=== PATIENT | male | born 1950 | race Caucasian/White ===

== ENCOUNTER → 2017-08-07 12:57 | Outpatient (POV) | payer MEDICARE, SELFPAY | PROVIDERS: Visit Provider Dermatology | DX: Z00.00 Encounter for general adult medical examination without abnormal findings (principal) ==

== ENCOUNTER → 2019-01-26 15:04 | Outpatient (POV) | payer MEDICARE, SELFPAY | PROVIDERS: Visit Provider Dermatology | DX: Z00.00 Encounter for general adult medical examination without abnormal findings (principal) ==

== ENCOUNTER → 2020-07-18 13:25 | Outpatient (CLI) | payer MEDICARE, SELFPAY ==
--- NOTE | 2020-07-18 13:34 | XR_ITS ---
PROCEDURE: XR WRIST LT MIN 3V CLINICAL INDICATION: left wrist pain Pain and swelling COMPARISON: No exams were available for comparison FINDINGS: No fracture or dislocation. No lytic or blastic change. There is normal mineralization. The joint spaces are well-preserved. No significant degenerative/arthritic changes. No erosive changes evident. Other findings:Small subcortical cyst is present at the region of the styloid process of the radius at 5 mm. IMPRESSION: Subcortical cyst of the radial styloid process otherwise negative Dictated by: Ede Kwan MD 07/18/2020 14:37 Ede Kwan MD in [place] 07/18/2020 14:37
== END ==
PROVIDERS: PCP Internal Medicine Adolescent Medicine; Visit Provider Orthopaedic Surgery
DX: M25.532 Pain in left wrist (principal)
CPT/HCPCS: 73110

== ENCOUNTER 2020-07-18 14:34 | Outpatient (RCR) | payer MEDICARE, SELFPAY | END 2020-07-18 15:00 | disposition home or self-care (01) | LOC: OT 14:34 | PROVIDERS: Visit Provider Orthopaedic Surgery | DX: M65.4 Radial styloid tenosynovitis [de Quervain] (principal); M25.532 Pain in left wrist; G89.29 Other chronic pain | CPT/HCPCS: 97763 ==

== ENCOUNTER → 2020-08-15 09:03 | Outpatient (POV) | payer MEDICARE, SELFPAY | PROVIDERS: Visit Provider Dermatology | DX: Z00.00 Encounter for general adult medical examination without abnormal findings (principal) ==

== ENCOUNTER → 2020-09-19 09:30 | Outpatient (POV) | payer MEDICARE, SELFPAY | PROVIDERS: Visit Provider Dermatology | DX: Z00.00 Encounter for general adult medical examination without abnormal findings (principal) ==

== ENCOUNTER → 2020-09-29 08:41 | Outpatient (CLI) | payer MEDICARE, SELFPAY ==
[2020-09-29 09:00] LABS: Basophils # 0.1 K/mm3 (0-0.2); Basophils % 0.8 % (0.1-2.0); Eosinophils # 0.1 K/mm3 (0.0-0.4); Eosinophils % 0.4 % (0.1-12.0); Hematocrit 41.6 % (42.0-52.0); Hemoglobin 13.4 g/dL (14.1-18.0); Lymphocytes # 3.8 K/mm3 (0.7-4.5); Lymphocytes % 31.7 % (10-50); Mean Corpuscular HGB Conc 32.2 g/dL (31.8-35.4); Mean Corpuscular Hemoglobin 29.9 pg (27.0-31.2); Mean Corpuscular Volume 92.6 fl (80-94); Mean Platelet Volume 8.1 fl (7.4-10.4); Monocytes # 0.7 K/mm3 (0.1-1.0); Monocytes % 5.7 % (1.7-9.3); Neutrophils # 7.4 K/mm3 (1.8-7.8); Neutrophils % 61.4 % (37.0-80.0); Platelet Count 269 K/mm3 (142-424); Red Blood Count 4.49 M/mm3 (4.60-6.20); Red Cell Distribution Width 14.4 % (11.5-17.5)
[2020-09-29 09:11] LABS: Hemoglobin A1C 6.5 % (4.0-6.0)
[2020-09-29 09:57] LABS: Alanine Aminotransferase 23 U/L (12-78); Albumin Level 4.4 g/dl (3.5-5.0); Albumin/Globulin Ratio 1.8 (1.1-1.8); Alkaline Phosphatase 88 U/L (38-126); Anion Gap 11.2 mEq/L (5-15); Aspartate Amino Transferase 22 U/L (17-59); Bilirubin,Total 0.6 mg/dl (0.2-1.3); Blood Urea Nitrogen 23 mg/dl (9-20); Carbon Dioxide 26 mmol/L (22.0-30.0); Chloride 105 mmol/L (98-107); Chol/HDL Ratio 4.3 (1-3.5); Cholesterol 150 mg/dl (140-200); Estimated Glomerular Filt Rate 74 ml/min (>60); GFR (African American) 89 ML/MIN (>60); Globulin 2.5 g/dL (1.3-3.2); Glucose 113 mg/dl (74-100); HDL Cholesterol 35 mg/dl (40-60); Potassium 4.2 mmoL/L (3.5-5.1); Sodium 138 mmol/L (136-145); Total Protein,Serum 6.9 g/dl (6.3-8.2); Triglycerides 181 mg/dl (30-150); VLDL Cholesterol 36 mg/dL (0-40)
[2020-09-29 10:07] LABS: Direct LDL Cholesterol 83.38 mg/dL (100-129)
[2020-09-29 10:26] LABS: Prostate Specific Ag Screen 3.5 ng/ml (0.0-4.0)
== END ==
PROVIDERS: Visit Provider Internal Medicine Adolescent Medicine
DX: I25.10 Atherosclerotic heart disease of native coronary artery without angina pectoris (principal); E78.5 Hyperlipidemia, unspecified; E11.9 Type 2 diabetes mellitus without complications; Z79.84 Long term (current) use of oral hypoglycemic drugs; Z12.5 Encounter for screening for malignant neoplasm of prostate
CPT/HCPCS: 36415; 80053; 80061; 83036; 85025; G0103

== ENCOUNTER → 2021-05-02 08:22 | Outpatient (CLI) | payer MEDICARE, SELFPAY ==
[2021-05-02 09:21] LABS: Basophils # 0.1 K/mm3 (0-0.2); Basophils % 1.4 % (0.1-2.0); Eosinophils # 0.6 K/mm3 (0.0-0.4); Eosinophils % 7.4 % (0.1-12.0); Hemoglobin 13.5 g/dL (14.1-18.0); Lymphocytes # 2.5 K/mm3 (0.7-4.5); Lymphocytes % 29.5 % (10-50); Mean Corpuscular HGB Conc 32.9 g/dL (31.8-35.4); Mean Corpuscular Hemoglobin 30.2 pg (27.0-31.2); Mean Corpuscular Volume 91.7 fl (80-94); Mean Platelet Volume 8.9 fl (7.4-10.4); Monocytes # 0.4 K/mm3 (0.1-1.0); Monocytes % 4.9 % (1.7-9.3); Neutrophils # 4.7 K/mm3 (1.8-7.8); Neutrophils % 56.9 % (37.0-80.0); Platelet Count 268 K/mm3 (142-424); Red Blood Count 4.47 M/mm3 (4.60-6.20); Red Cell Distribution Width 14.3 % (11.5-17.5); White Blood Count 8.3 K/mm3 (4.8-10.8)
[2021-05-02 10:11] LABS: Alanine Aminotransferase 16 U/L (12-78); Albumin Level 4.3 g/dl (3.5-5.0); Albumin/Globulin Ratio 1.7 (1.1-1.8); Alkaline Phosphatase 92 U/L (38-126); Anion Gap 10.4 mEq/L (5-15); Aspartate Amino Transferase 26 U/L (17-59); Bilirubin,Total 0.7 mg/dl (0.2-1.3); Blood Urea Nitrogen 16 mg/dl (9-20); Calcium 9.5 mg/dl (8.4-10.2); Carbon Dioxide 34 mmol/L (22.0-30.0); Chloride 101 mmol/L (98-107); Cholesterol 120 mg/dl (140-200); Estimated Glomerular Filt Rate 66 ml/min (>60); GFR (African American) 80 ML/MIN (>60); Globulin 2.6 g/dL (1.3-3.2); Glucose 119 mg/dl (74-100); HDL Cholesterol 30 mg/dl (40-60); Potassium 4.4 mmoL/L (3.5-5.1); Sodium 141 mmol/L (136-145); Total Protein,Serum 6.9 g/dl (6.3-8.2); Triglycerides 139 mg/dl (30-150); VLDL Cholesterol 28 mg/dL (0-40)
[2021-05-02 10:22] LABS: Direct LDL Cholesterol 67.57 mg/dL (100-129)
[2021-05-02 10:41] LABS: Prostate Specific Ag Screen 2.7 ng/ml (0.0-4.0)
[2021-05-02 10:46] LABS: Hemoglobin A1C 6.1 % (4.0-6.0)
== END ==
PROVIDERS: Visit Provider Internal Medicine Adolescent Medicine
DX: E11.9 Type 2 diabetes mellitus without complications (principal); E78.5 Hyperlipidemia, unspecified; I25.10 Atherosclerotic heart disease of native coronary artery without angina pectoris; Z79.84 Long term (current) use of oral hypoglycemic drugs; Z12.5 Encounter for screening for malignant neoplasm of prostate
CPT/HCPCS: 36415; 80053; 80061; 83036; 85025; G0103

== ENCOUNTER → 2021-05-10 10:18 | Outpatient (CLI) | payer MEDICARE, SELFPAY ==
--- NOTE | 2021-05-10 10:21 | XR_ITS ---
PROCEDURE: XR SHOULDER LT MIN 2V CLINICAL INDICATION: ACUTE PAIN OF LT SHOULDER COMPARISON: No exams were available for comparison FINDINGS: No fracture or dislocation. No lytic or blastic change. There is normal mineralization. Osteoarthritic changes are present at the acromioclavicular joint and glenohumeral joint. No significant subacromial stenosis. Other findings:None. 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
== END ==
PROVIDERS: PCP Internal Medicine Adolescent Medicine; Visit Provider Internal Medicine Adolescent Medicine
DX: M25.512 Pain in left shoulder (principal)
CPT/HCPCS: 73030

== ENCOUNTER 2021-06-26 13:56 | Outpatient (RCR) | payer MEDICARE, SELFPAY ==
--- NOTE | 2021-06-26 14:57 | HMH.OTOPEV ---
OT Inpatient Evaluation Rehab OT Outpatient Eval Start: 06/26/21 14:37 Freq: Status: Active Protocol: Document 06/26/21 14:38 RMGREG (Rec: 06/26/21 14:57 [facility] [id number]) Electronically Signed By Florence Juares OT 06/26/21 14:38 Outpatient Therapy Subjective History Subjective History Pt is a 70 year old male who reports to therapy for initial evaluation to left shoulder. Pt reports he has been having pain at the left shoulder since this past summer (2020). Pt explains he does not require a specific injury causing the pain to begin. X- rays did find mild OA of the AC joint and Glenohumeral joint of left shoulder. Pt received a steroid injection from Dr. Lema ~2 weeks ago. Since the injection pt reports he has significantly less pain and improved AROM. Pt does demonstrate with slight decrease in AROM and strength at left shoulder upon evaluation. Pt will continue to be seen twice a week in order to address all deficits. Chief Complaint Pain,Stiff,Weakness Symptom Type Ache,Throb,Sharp,Dull Symptoms Relieved By Rest/Positioning Symptoms Aggravated By Physical Activity,Lifting Prior Functional Limitations None Current Functional Limitations Reaching,Lifting,Housework, Sleeping,Recreation Activity Symptom Description Intermittent,Activity Dependent Level of pain today (0-10) 0 Pain scale - at its best (0-10) 0 Pain scale - at its worst (0-10) 8 Shoulder/Elbow Eval Shoulder Objective Measurements Shoulder ROM Left Shoulder Abduction Active Range of 150 degrees Motion (degrees) Shoulder Flexion Active Range of Motion 145 degrees (degrees) Query Text: Shoulder External Rotation Active Range 75 degrees of Motion (degrees) Shoulder Internal Rotation Active Range 80 degrees of Motion (degrees) Shoulder MMT Shoulder Abduction Strength Grade 3 Fair Shoulder Extension Strength Grade 3 Fair Shoulder Flexion Strength Grade 3 Fair Shoulder External Rotation Strength 3 Fair Grade Shoulder Internal
== END 2021-06-26 13:59 | disposition home or self-care (01) ==
LOC: OT 13:56
PROVIDERS: PCP Internal Medicine Adolescent Medicine; Visit Provider Orthopaedic Surgery
DX: M19.012 Primary osteoarthritis, left shoulder (principal); M65.4 Radial styloid tenosynovitis [de Quervain]; M25.532 Pain in left wrist
CPT/HCPCS: 97010; 97014; 97110; 97166; G0283

== ENCOUNTER → 2021-07-17 08:43 | Outpatient (POV) | payer MEDICARE, SELFPAY | PROVIDERS: Visit Provider Dermatology | DX: Z00.00 Encounter for general adult medical examination without abnormal findings (principal) ==

== ENCOUNTER → 2021-07-31 09:15 | Outpatient (POV) | payer MEDICARE, SELFPAY | PROVIDERS: Visit Provider Dermatology | DX: Z00.00 Encounter for general adult medical examination without abnormal findings (principal) ==

== ENCOUNTER → 2021-08-01 11:44 | Outpatient (CLI) | payer MEDICARE, SELFPAY ==
[2021-08-01 12:02] LABS: Basophils # 0.2 K/mm3 (0-0.2); Basophils % 2.2 % (0.1-2.0); Eosinophils # 0.5 K/mm3 (0.0-0.4); Eosinophils % 5.3 % (0.1-12.0); Hematocrit 41.7 % (42.0-52.0); Hemoglobin 13.7 g/dL (14.1-18.0); Lymphocytes # 2.9 K/mm3 (0.7-4.5); Mean Corpuscular HGB Conc 32.9 g/dL (31.8-35.4); Mean Corpuscular Volume 91.1 fl (80-94); Monocytes # 0.5 K/mm3 (0.1-1.0); Monocytes % 5.5 % (1.7-9.3); Neutrophils # 5.6 K/mm3 (1.8-7.8); Neutrophils % 56.9 % (37.0-80.0); Platelet Count 266 K/mm3 (142-424); Red Blood Count 4.57 M/mm3 (4.60-6.20); Red Cell Distribution Width 15.1 % (11.5-17.5); White Blood Count 9.8 K/mm3 (4.8-10.8)
--- NOTE | 2021-08-01 12:16 | ECG_ITS ---
APPROVED REPORT Exam: Resting ECG HR:49 bpm ECG Measurements Heart Rate 49 AXES NJ 168 P 47 QRSd 96 QRS 24 QT 440 T 48 QTc 409 Conclusion SINUS BRADYCARDIA WITH FREQUENT VENTRICULAR PREMATURE COMPLEXES ABNORMAL RHYTHM ECG UNCONFIRMED REPORT Electronically signed by : Oren Perez MD 08/01/2021 21:54:28
[2021-08-01 12:28] LABS: Hemoglobin A1C 6.3 % (4.0-6.0)
[2021-08-01 12:57] LABS: Chloride 100 mmol/L (98-107)
[2021-08-01 12:58] LABS: Potassium 4.8 mmoL/L (3.5-5.1); Sodium 135 mmol/L (136-145)
[2021-08-01 13:00] LABS: Blood Urea Nitrogen 18 mg/dl (9-20); Estimated Glomerular Filt Rate 66 ml/min (>60); GFR (African American) 80 ML/MIN (>60)
[2021-08-01 13:01] LABS: Anion Gap 12.8 mEq/L (5-15); Calcium 9.4 mg/dl (8.4-10.2); Carbon Dioxide 27 mmol/L (22.0-30.0); Glucose 113 mg/dl (74-100)
== END ==
PROVIDERS: PCP Internal Medicine Adolescent Medicine; Visit Provider Orthopaedic Surgery
DX: E11.9 Type 2 diabetes mellitus without complications (principal); Z01.818 Encounter for other preprocedural examination; Z11.52 Encounter for screening for COVID-19; G56.02 Carpal tunnel syndrome, left upper limb; Z79.84 Long term (current) use of oral hypoglycemic drugs
CPT/HCPCS: 36415; 80048; 83036; 85025; 93005; C9803; U0003; U0005

== ENCOUNTER → 2021-08-06 15:32 | Outpatient (CLI) | payer MEDICARE, SELFPAY ==
--- NOTE | 2021-08-06 15:37 | MR_ITS ---
PROCEDURE INFORMATION: Exam: MR Right Upper Extremity Other Than Joint Without Contrast; Hand Exam date and time: 08/06/2021 3:37 PM Age: 70 years old Clinical indication: Pain; Additional info: Evaluate for RT middle ganglion cyst TECHNIQUE: Imaging protocol: MR of the Right upper extremity without contrast. Exam focused on the hand. COMPARISON: No relevant prior studies available. FINDINGS: Limitations: Lack of intravenous contrast. Bones/joints: No acute fracture. No dislocation. Normal marrow signal. Fluid: No significant joint effusion. Flexor compartment tendons: Intact. Extensor compartment tendons: Intact. Muscles: Unremarkable. Soft tissues: 1.2 x 0.6 x 0.4 cm low to intermediate T1, high T2 signal lesion along flexor tendon of third digit. IMPRESSION: Nonspecific lesion along flexor tendon of third digit. Recommend contrast MRI for complete evaluation.
--- NOTE | 2021-08-06 15:47 | XR_ITS ---
FINAL REPORT CLINICAL HISTORY: R/O METAL FOREIGN BODY FOR MRI. prior hx metal in both eyes. patient waiting for mri on site FINDINGS: ORBITS 2 views of the orbits were obtained prior to MRI. No foreign body is identified. IMPRESSION: No foreign body identified. Reviewed, Interpreted and Dictated by Dean Buck III, MD Transcribed by Soni Finney Authenticated by Dean Buck III, MD on 08/06/2021 04:38:39 PM [facility]
== END ==
PROVIDERS: PCP Internal Medicine Adolescent Medicine; Visit Provider Orthopaedic Surgery
DX: M79.644 Pain in right finger(s) (principal); H05.53 Retained (old) foreign body following penetrating wound of bilateral orbits
CPT/HCPCS: 70200; 73218

== ENCOUNTER → 2021-08-07 09:18 | Outpatient (CLI) | payer MEDICARE, SELFPAY | PROVIDERS: Visit Provider Orthopaedic Surgery | DX: Z01.812 Encounter for preprocedural laboratory examination (principal); Z11.52 Encounter for screening for COVID-19; G56.01 Carpal tunnel syndrome, right upper limb | CPT/HCPCS: C9803; U0003; U0005 ==

== ENCOUNTER 2021-08-09 10:00 | Day surgery (SDC) | payer MEDICARE, SELFPAY ==
[2021-08-06 13:41] VITALS: BMI 31.4
[2021-08-09 10:28] VITALS: BP 132/73; PULSE 51; RESP 18; TEMP 36.1; O2SAT 98
--- NOTE | 2021-08-09 12:47 | P.PN_ITS ---
[facility] Anesthesia Checklist - Patient Identification Patient Identification: Arm Band, Verbal (Name & ) - Structural Data Admitted From: Home Planned Operative Procedure/s: Left Carpal Tunnel Repair Consent for Planned Operative Procedure(s) Verified: Yes Verified Documents: Surgical Consent - NPO Status Verified Time NPO: 00:00 - Additional verifications Anesthesia Reactions: No Hx Blood Transfusions: No Blood Transfusion Reaction: No - Airway Assessment C-Spine Mobility Assessed: Yes TMJ Mobility Assessed: Yes Dentition: Good Dentition - Neurological Assessment Level of Consciousness: Awake, Alert, Appropriate - Anesthesia Plan ASA Class: III Anesthesia Type: MAC [facility] History I have reviewed the patient's past medical history: Yes Medical History: Reports:: Diabetes Mellitus Type 2, Hyperlipidemia, Hypertensio n Denies:: Cancer, Diabetes Mellitus Type 1, Internal Pacemaker, MRSA, Seizures *Have you ever received a pneumonia vaccine?: Yes *Have you received a flu vaccine this season?: Yes Other Medical History: Reports: Arthritis. Denies: Blood Transfusion Reaction Anesthesia experience/problems:: none Other Surgeries: Yes: Cancer Surgery, Cardiac Catheterization, Colonoscopy, Open Heart Surgery. No: Pacemaker Amputation: No Fractures: No - *Social History Last grade of school completed: GED Smoking Status: Never smoker Tobacco Type: cigarettes # Packs/Day (cigarettes): 0 #Yrs smoked (if former smoker): 0 Alcohol Intake: current Alcohol Intake Frequency:: a few times a month Substance Use Type: denies use *Occupational Status:: retired Housing: house Household Members: spouse *Travel in the last 8 weeks: None Family Hx:: Cancer, Diabetes
[2021-08-09 14:09] VITALS: BP 155/74; PULSE 69; RESP 18; TEMP 36.7; O2SAT 96
[2021-08-09 14:24] VITALS: BP 152/79; PULSE 70; RESP 18; O2SAT 94
[2021-08-09 14:39] VITALS: BP 154/81; PULSE 53; RESP 18; O2SAT 95
--- NOTE | 2021-08-09 22:08 | HMH.OPNOTE ---
Date of procedure: 08/09/21 Pre-op Diagnosis:: Recurrent carpal tunnel syndrome, left wrist Post-op Diagnosis:: Same Procedure performed:: Revision open carpal tunnel release, left wrist Surgeon:: Sidney Lema MD [employer] Supervisor(s):: Rachael Tao PA-C CHILD PSYCHOMETRIST:: Other (Joe Villeda) Anesthesia: MAC, local Estimated blood loss (mL): 2 Clinical Note:: Patient is a 70-year-old male with recurrent left carpal tunnel syndrome with long-standing symptoms. EMG/NCV results confirmed moderate median nerve compression at the wrist. He previously had an open carpal tunnel release surgery about 10 years ago. His symptoms on the left side are gradually worsening, and patient failed to respond adequately to conservative management. Therefore, the revision carpal tunnel release surgery on the left side is necessary to relieve symptoms, preserve the remaining fibers of the median nerve, improve function, and decrease the pain, paresthesias and weakness and to prevent permanent nerve damage. Please refer to my office note for full details. Operative findings:: The intraoperative findings showed a lot of scarring from the previous surgery. The median nerve was seen to be very tightly compressed and hyperemic over the distal carpal tunnel. Adhesions and synovitis noted in the carpal tunnel. The flexor retinaculum was noted to be thick and tight distally. There were no space-occupying lesions within the carpal tunnel. Operative note:: On the day of the surgery the patient was met in the preoperative area. Patient was positively identified, and the operative site was marked and initialed by me. A physical examination was performed, and the chart was updated. I again discussed the procedure, risks and benefits and alternatives with the patient. The complications discussed include but are not limited to- bleeding, injury to nerves, blood vessels and tendons, infection, wound dehiscence, incomplete relief/continued pain, persistent numbness, palmar hypersensitivity, pillar pain, DVT/PE, complex regional pain syndrome (CRPS), worsening of nerve damage, failure of the condition to improve, incomplete return of function, bowstringing of tendons, weakness of pool cleaner strength, recurrence, failure of the surgery to accomplish the desired goals, decreased use of the hand, loss of use of the arm, loss of the hand or arm, loss of life. Likely need for further surgery in the future has been discussed. I have told her that I will be making a separate and longer incision crossing the wrist crease at an angle and have indicated to the patient where the proposed incision would be made and discussed the possibility of extending the incision if needed to accomplish an effective release. We have discussed how the goal of surgery is to protect the fibers which have remained healthy and hopefully reverse the symptoms of the fibers which are compromised but still recoverable. We have explained that fibers that are permanently damaged will not recover. Patient asked appropriate questions, and all have been answered by me. Patient understood the risks, agreed to proceed with surgery, and no guarantees or assurances were given or implied. The patient was then brought to the operating room and placed supine on the operating table. The left upper extremity was placed over a side table. All the bony prominences were well-padded. The patient had a MAC anesthesia administered by the building analyst/supervisor. A well-padded tourniquet cuff was placed over the upper arm. The left upper extremity was prepped and draped in the usual sterile fashion. A preprocedure timeout was performed as per hospital policy. The Strong's landmarks and previous skin incision was marked on the skin with a marker pen. I then marked the proposed new incision more ulnar to the previous scar and extending into the forearm crossing the distal wrist crease at an angle. The tissue around the proposed incision was injected with 10 cc of 0.5% M
[2022-03-07 10:57] LABS: POC Glucose,Bedside 129 (70-110)
== END 2021-08-09 14:39 | disposition home or self-care (01) ==
LOC: OR 10:01
PROVIDERS: PCP Internal Medicine Adolescent Medicine; Visit Provider Orthopaedic Surgery
PROC: (CPT 64721; principal; 2021-08-09 11:30)
DX: G56.02 Carpal tunnel syndrome, left upper limb (principal)
CPT/HCPCS: 64721; 82962; 96374

== ENCOUNTER 2021-11-25 10:35 | Emergency (ER) | payer MEDICARE, SELFPAY ==
[2021-11-25] VITALS (13 sets, daily range): BP systolic 169–218; BP diastolic 75–113; PULSE 65–84; RESP 18; TEMP 36.5; O2SAT 92–98; BMI 30.7
--- NOTE | 2021-11-25 11:07 | CT_ITS ---
PROCEDURE INFORMATION: Exam: CT Abdomen And Pelvis Without Contrast Exam date and time: 11/25/2021 11:22 AM Age: 71 years old Clinical indication: Abdominal pain; Other: Pain in rectum, unable to use bathroom; Additional info: Lower abdomen pain TECHNIQUE: Imaging protocol: Computed tomography of the abdomen and pelvis without contrast. Radiation optimization: All CT scans at this facility use at least one of these dose optimization techniques: automated exposure control; mA and/or kV adjustment per patient size (includes targeted exams where dose is matched to clinical indication); or iterative reconstruction. COMPARISON: No relevant prior studies available. FINDINGS: Liver: Normal. No mass. Gallbladder and bile ducts: Cholecystectomy. Pancreas: Normal. No ductal dilation. Spleen: Normal. No splenomegaly. Adrenal glands: Normal. No mass. Kidneys and ureters: Left renal cysts. Small nonobstructing left renal calculi. Stomach and bowel: No bowel obstruction. Moderate to large colonic stool burden. There is mild mural thickening of the rectum with mild surrounding fat stranding. A few locules of gas which appear to be extraluminal are also seen along the lower rectum. These may be within the intersphincteric space. The most inferior aspect of the anal canal is not imaged. Appendix: No evidence of appendicitis. Intraperitoneal space: See Stomach and bowel finding. Vasculature: Mild burden of atherosclerotic plaque in the abdominal aorta and branch vessels. No aneurysm. Lymph nodes: Unremarkable. No enlarged lymph nodes. Urinary bladder: Unremarkable as visualized. Reproductive: Prostatomegaly. Bones/joints: Unremarkable. No acute fracture. Soft tissues: Unremarkable. Other findings: Mild stranding in the mesorectum is seen. IMPRESSION: The wall of the rectum appears mildly thickened with some surrounding fat stranding. A few locules of extraluminal gas are also seen along the lower rectal/anal canal. These appear to be within the intersphincteric space. The most inferior aspect of the anal canal is not imaged. Findings could reflect a small contained perforation in the setting of proctitis. COMMENTS: Consistent with the [employer]'s Incidental Findings Committee white paper (J Am Sophia Radiol 2018): Any incidental renal lesion less than 1 cm or classified as too small to characterize, or any incidental cystic renal lesion characterized as simple-appearing, is likely benign. No follow-up imaging is recommended for these lesions per consensus recommendations based on imaging criteria.
[2021-11-25 11:08] LABS: Basophils # 0.3 K/mm3 (0-0.2); Basophils % 1.4 % (0.1-2.0); Eosinophils # 0.6 K/mm3 (0.0-0.4); Hematocrit 45.9 % (42.0-52.0); Hemoglobin 15.4 g/dL (14.1-18.0); Lymphocytes # 3.5 K/mm3 (0.7-4.5); Lymphocytes % 18.1 % (10-50); Mean Corpuscular HGB Conc 33.6 g/dL (31.8-35.4); Mean Corpuscular Volume 92.1 fl (80-94); Mean Platelet Volume 8.5 fl (7.4-10.4); Monocytes # 0.6 K/mm3 (0.1-1.0); Monocytes % 3.2 % (1.7-9.3); Neutrophils # 14.2 K/mm3 (1.8-7.8); Neutrophils % 74.3 % (37.0-80.0); Platelet Count 362 K/mm3 (142-424); Red Blood Count 4.98 M/mm3 (4.60-6.20); Red Cell Distribution Width 14.3 % (11.5-17.5); White Blood Count 19.1 K/mm3 (4.8-10.8)
[2021-11-25 11:10] LABS: Chloride 104 mmol/L (98-107)
--- NOTE | 2021-11-25 11:10 | PC.NURSE ---
pt states his is unable to urinate at this time. Pt given urinal when he is able too
[2021-11-25 11:11] LABS: Potassium 4.3 mmoL/L (3.5-5.1); Sodium 141 mmol/L (136-145)
[2021-11-25 11:13] LABS: Alanine Aminotransferase 26 U/L (12-78); Alkaline Phosphatase 129 U/L (38-126); Aspartate Amino Transferase 32 U/L (17-59); Blood Urea Nitrogen 20 mg/dl (9-20); Creatinine Clearance Estimated 78 mL/min (50-200); Estimated Glomerular Filt Rate 73 ml/min (>60); GFR (African American) 89 ML/MIN (>60)
[2021-11-25 11:14] LABS: Albumin Level 5.1 g/dl (3.5-5.0); Albumin/Globulin Ratio 1.5 (1.1-1.8); Anion Gap 20.3 mEq/L (5-15); Calcium 10.1 mg/dl (8.4-10.2); Carbon Dioxide 21 mmol/L (22.0-30.0); Globulin 3.3 g/dL (1.3-3.2); Glucose 204 mg/dl (74-100); Total Protein,Serum 8.4 g/dl (6.3-8.2)
[2021-11-25 11:18] LABS: MANUAL DIFFERENTIAL MANUAL DIFFERENTIAL (MANUAL DIFF)
--- NOTE | 2021-11-25 11:25 | PC.NURSE ---
pt given blanket for comfort
--- NOTE | 2021-11-25 11:26 | PC.NURSE ---
pt to radiology
--- NOTE | 2021-11-25 11:29 | PC.NURSE ---
pt back from radiology
--- NOTE | 2021-11-25 11:35 | PC.NURSE ---
pt reminded that we need a urine sample, urinal at pt side
[2021-11-25 11:50] LABS: Eosinophils % 3 % (0-3); Lymphocytes % 17 % (10-50); Monocytes % 1 % (2-9); Neutrophils % 78 % (42-76); Platelet Estimate Normal; RBC Morphology Normal; Total Cells Counted 100
--- NOTE | 2021-11-25 12:14 | HMH.EDGENADL ---
ED Disposition Clinical Impression: Rectal perforation, Proctitis Constipation Qualifiers: Constipation type: unspecified constipation type Qualified Code(s): K59.00 - Constipation, unspecified Disposition: Xfer Short-Term Hosp Condition on Discharge: Serious Instructions: DI for Acute Abdominal Pain Referrals: Oren Perez MD [Primary Care Provider] - - Critical Care Critical Care Time: No Attestation: On 11/25/21, the high probability of a clinically significant, sudden or life threatening deterioration of the following system(s) required my full and direct attention, intervention and personal management. The time I documented below is in addition to time spent performing reported procedures but includes the following listed in this critical care notation. Medical Decision Making - Preston Inquiry Pt receiving controlled substance: Yes Preston was queried for this patient: Yes Risks and benefits of using a controlled substance: were not discussed with pt by me Vital Signs: 11/25/21 10:36 11/25/21 10:40 11/25/21 10:45 Temperature 97.7 F Temperature Source Oral Pulse Rate 79 79 Pulse Rate [Left Radial] 74 Respiratory Rate 18 Blood Pressure 218/113 H 200/111 H Blood Pressure [Right Arm] 218/113 H Blood Pressure Mean 144 144 Blood Pressure Mean [Right Arm] 148 Blood Pressure Source [Right Arm] Automatic Cuff Blood Pressure Position [Right Arm] Sitting 02 Sat by Pulse Oximetry 98 98 98 Oxygen Delivery Method Room Air 11/25/21 10:49 11/25/21 11:00 11/25/21 11:20 Temperature Temperature Source Pulse Rate 75 75 74 Pulse Rate [Left Radial] Respiratory Rate Blood Pressure 200/111 H 205/98 H 205/107 H Blood Pressure [Right Arm] Blood Pressure Mean 140 133 139 Blood Pressure Mean [Right Arm] Blood Pressure Source [Right Arm] Blood Pressure Position [Right Arm] 02 Sat by Pulse Oximetry 98 98 98 Oxygen Delivery Method 11/25/21 11:34 11/25/21 12:00 11/25/21 12:30 Temperature Temperature Source Pulse Rate 65 77 84 Pulse Rate [Left Radial] Respiratory Rate Blood Pressure 169/75 H 191/94 H 175/98 H Blood Pressure [Right Arm] Blood Pressure Mean 108 110 Blood Pressure Mean [Right Arm] Blood Pressure Source [Right Arm] Blood Pressure Position [Right Arm] 02 Sat by Pulse Oximetry 95 95 96 Oxygen Delivery Method - Lab Data Lab Results 11/25/21 10:40: WBC 19.1 H, RBC 4.98, Hgb 15.4, Hct 45.9, MCV 92.1, MCH 31.0, MCHC 33.6, RDW 14.3, Plt Count 362, MPV 8.5, Neut % (Auto) 74.3, Lymph % (Auto) 18.1, Harnett % (Auto) 3.2, Eos % (Auto) 3.0, Baso % (Auto) 1.4, Neut # (Auto) 14.2 H, Lymph # (Auto) 3.5, Harnett # (Auto) 0.6, Eos # (Auto) 0.6 H, Baso # (Auto) 0.3 H, Total Counted 100, Neutrophils % (Manual) 78 H, Band Neutrophils % 1.0, Lymphocytes % (Manual) 17, Monocytes % (Manual) 1 L, Eosinophils % (Manual) 3, Platelet Estimate Normal, RBC Morphology Normal 11/25/21 10:40: Sodium 141, Potassium 4.3, Chloride 104, Carbon Dioxide 21 L, Anion Gap 20.3 H, BUN 20, Creatinine 1.00, Estimated Creat Clear 78, Estimated GFR 73, Est GFR ( Amer) 89, Glucose 204 H, Calcium 10.1, Total Bilirubin 1.0, AST 32, ALT 26, Alkaline Phosphatase 129 H, Total Protein 8.4 H, Albumin 5.1 H, Globulin 3.3 H, Albumin/Globulin Ratio 1.5 Result diagrams: 11/25/21 10:40 11/25/21 10:40 Orders (Tests/Meds): ED MEDICATIONS Generic Name Dose Route Start Last Admin Trade Name Freq PRN Reason Stop Dose Admin Ertapenem 1 gm/ Sodium 50 mls @ 100 mls/hr 11/25/21 12:30 11/25/21 12:37 Chloride IV 12/09/21 12:29 100 mls/hr Q24H [place] Administration Discontinued Medications Generic Name Dose Route Start Last Admin Trade Name Freq PRN Reason Stop Dose Admin Sodium Chloride 1,000 mls @ 999 mls/hr 11/25/21 11:00 11/25/21 11:02 Sod Chlor 0.9% 1000ml Bag IV 11/25/21 12:00 999 mls/hr .Q1H1M [place] Administration Ketorolac Tromethamine 30 mg
--- NOTE | 2021-11-25 12:27 | PC.NURSE ---
Paged Gen Surgery fpr ERMD
--- NOTE | 2021-11-25 12:28 | PC.NURSE ---
RAHEL returned page
[2021-11-25 12:35] LABS: Coronavirus 19, PCR Not Detected (NotDetected); Influenza A, PCR Not Detected (NotDetected); Influenza B, PCR Not Detected (NotDetected)
--- NOTE | 2021-11-25 12:45 | PC.NURSE ---
Contacted [facility] for consult/transfer on pt, ER MD speaking to [facility] at the moment
--- NOTE | 2021-11-25 12:51 | PC.NURSE ---
PT accepted at DR [facility]
--- NOTE | 2021-11-25 13:07 | PC.NURSE ---
report given to [facility] ER nurse
[2021-11-25 13:10] LABS: Lactic Acid 1.3 mmol/L (0.7-2.1)
--- NOTE | 2021-11-25 13:11 | PC.NURSE ---
Pt and family update about wait time for an ambulance to transfer to [facility] due to availability. Pt and family verbalize understanding
[2021-11-25 13:28] LABS: Microscopic, Urine URINE MICROSCOPIC (MICROSCOPIC)
[2021-11-25 13:42] LABS: Appearance,Urine CLEAR (Clear); Bilirubin,Urine Negative (Negative); Blood, Urine Negative (Negative); Color,Urine DK YELLOW (Yellow); Glucose,Urine (UA) Negative (Negative); Ketones,Urine Negative (Negative); Leukocyte Esterase,Urine Negative (Negative); Nitrate,Urine Negative (Negative); Protein,Urine Negative (Negative); Specific Gravity, Urine >= 1.030 (1.005-1.030); Urobilinogen,Urine 0.2 EU/dl (0.2)
[2021-11-25 15:19] LABS: Bacteria,Urine Trace /lpf
== END 2021-11-25 14:25 | disposition short-term general hospital (02) ==
PROVIDERS: Emergency Provider Emergency Medicine; PCP Internal Medicine Adolescent Medicine
DX: K62.89 Other specified diseases of anus and rectum (principal); K63.1 Perforation of intestine (nontraumatic); K59.00 Constipation, unspecified
CPT/HCPCS: 74176; 80053; 81001; 83605; 85007; 85025; 87040; 96365; 96375; 96376; 99285; C9803; J1335; J2405; U0003; U0005

== ENCOUNTER → 2022-04-16 13:40 | Outpatient (CLI) | payer MEDICARE, SELFPAY ==
--- NOTE | 2022-04-16 13:45 | MR_ITS ---
FINAL REPORT CLINICAL HISTORY: LUMBAR NEURALGIA. RIGHT SIDED LOW BACK PAIN. RIGHT ANTERIOR THIGH PAIN. FINDINGS: Multiplanar MR imaging of the lumbar spine was performed without contrast. On the sagittal T2-weighted images, there is abnormal decreased signal throughout the lumbar discs. The vertebrae are of normal height. The vertebral alignment is normal. T12-L1: There is a mild diffuse disc bulge with mild bilateral neural foraminal narrowing. L1-2: There is a mild diffuse disc bulge with mild bilateral neural foraminal narrowing. L2-3: There is a moderate diffuse disc bulge with endplate hypertrophy. There is moderate spinal and bilateral neural foraminal narrowing on image 16 of series 7. L3-4: There is a mild diffuse disc bulge. There is moderate to high-grade right and moderate left neural foraminal narrowing. L4-5: There is a diffuse disc bulge with bilateral facet hypertrophy. There is moderate to high-grade bilateral neural foraminal narrowing. L5-S1: There is a mild diffuse disc bulge with mild bilateral neural foraminal narrowing. IMPRESSION: Diffuse disc bulge with spinal and bilateral neural foraminal narrowing at L2-L3. Multilevel neural foraminal narrowing most evident on the right at L3-L4. Reviewed, Interpreted and Dictated by Joaquim Tang MD Transcribed by Dago Villasenor Authenticated and [facility]
== END ==
PROVIDERS: PCP Internal Medicine Adolescent Medicine; Visit Provider Internal Medicine Adolescent Medicine
DX: M54.16 Radiculopathy, lumbar region (principal)
CPT/HCPCS: 72148; 76376

== ENCOUNTER → 2022-05-09 08:48 | Outpatient (POV) | payer MEDICARE, SELFPAY ==
[2022-05-09 09:06] VITALS: BP 135/78; PULSE 72; RESP 18; O2SAT 95; BMI 31.2
--- NOTE | 2022-05-09 10:04 | EXP.PAIN.OV ---
HPI Data of Consult Patient: new to practice Consult date: 05/09/22 Requesting Physician: Elvia Tinoco APRN Primary Care Provider: Oren Perez MD Consult Narrative Reason for consult: Low back pain, right leg pain History of present illness: Mr. Scott is a 71 year old male who presents today as a new patient. He is a referral from Melissa Salazar's office. Today he rates his pain a 7 out of 10. Patient states it is all in his low back along the right side that radiates down into his right leg. Patient states he has had a history of low back pain for years however approximately around April he was working down in his basement and was in awkward positioning and aggravated his pain. Patient describes this as a constant, aching, throbbing sensation that is worse with increased activity. Patient states he is unable to tolerate any prolonged sitting, standing, walking. Patient states it does affect his ability to get any sleep. Patient states he frequently has to reposition himself multiple times throughout the night and is often woken up from the pain. Patient has tried supn-drx-drdwees Tylenol and ibuprofen with minimal improvement. Patient also has tried a heating pad that provides some temporary relief. Patient is interested in any possible options we could provide to give additional relief. Patient is not currently on any scheduled medications. His Preston is [phone]. It is been reviewed and appropriate. CC: Elvia Tinoco APRN [facility] Disclaimer: The information contained in this section may have been updated after the patient was seen, as this information can be updated by other users. Medical History (Updated 05/09/22 @ 10:09 by Elvia Tinoco APRN) Anxiety Arthritis Diabetes GERD (gastroesophageal reflux disease) HLD (hyperlipidemia) HTN (hypertension) Surgical History (Updated 05/09/22 @ 09:11 by Sofia Mata RN) H/O colonoscopy Social History (Updated 05/09/22 @ 09:11 by Sofia Mata RN) Smoking Status: Never smoker second hand exposure: No alcohol intake: current substance use type: denies use current occupational status: retired Travel in the last 8 weeks: None household members: spouse housing: house caffeine: Yes Review of Systems Review of Systems Review of systems:: pertinent systems reviewed and negative unless documented below Review of systems (narrative): Review of Systems: General: No recent weight changes, no fever, no sleep disturbances Respiratory: No cough, no shortness of air, no recurring pulmonary infections Cardiovascular/peripheral vascular: No chest pain, no palpitations, no edema, no shortness of breath Gastrointestinal: No new onset incontinence, normal bowel movements reported Genitourinary: No new onset incontinence Musculoskeletal: Low back pain, right leg pain Psychiatric: [Normal mood/affect] Neurological: [Denies weakness in extremities], [denies balance issues] Meds Home Medications and Allergies Home Medications Medication Instructions Recorded Confirmed Type alprazolam 0.5 mg tablet 0.5 mg PO BID PRN Anxiety 07/03/17 05/09/22 History aspirin 81 mg tablet,delayed 81 mg PO QDAY RACHEL HEALTHY 07/03/17 05/09/22 History release (Adult Aspirin Regimen) atorvastatin 10 mg tablet 40 mg PO QDAY Cholesterol 07/03/17 05/09/22 History carvedilol 12.5 mg tablet 12.5 mg PO BID BP 07/03/17 05/09/22 History citalopram 20 mg tablet 20 mg PO QDAY . 07/03/17 05/09/22 History metformin 500 mg tablet 500 mg PO BID Diabetes 07/03/17 05/09/22 History nitroglycerin 0.4 mg sublingual 0.4 mg SUBLINGUAL Q5M PRN Chest 07/03/17 05/09/22 History tablet Pain omeprazole 20 mg capsule,delayed 20 mg PO DAILY Reflux/Acid reflux 07/03/17 05/09/22 History release losartan 50 mg tablet 50 mg PO DAILY BP 07/18/20 05/09/22 History baclofen 10 mg tablet 10 mg PO HS PRN muscle spasticity 05/09/22 Rx #14 tabs New Prescriptions to Start Prescripti
== END | disposition home or self-care (01) ==
PROVIDERS: PCP Internal Medicine Adolescent Medicine; Visit Provider Nurse Practitioner Family
DX: M51.16 Intervertebral disc disorders with radiculopathy, lumbar region (principal); M46.1 Sacroiliitis, not elsewhere classified; M79.604 Pain in right leg; M47.26 Other spondylosis with radiculopathy, lumbar region; Z79.899 Other long term (current) drug therapy
CPT/HCPCS: 99202; G0463

== ENCOUNTER 2022-05-14 13:37 | Day surgery (SDC) | payer MEDICARE, SELFPAY ==
[2022-05-14 13:50] VITALS: BP 135/75; PULSE 69; RESP 18; TEMP 36.8; O2SAT 95; BMI 31.2
[2022-05-14 14:00] VITALS: BP 155/82; PULSE 65; RESP 18; O2SAT 95
--- NOTE | 2022-05-14 14:01 | P.PCN_ITS ---
Procedure Date: 05/14/22 Time: 14:00 Anesthesiologist:: Hitesh Babb CRNA Complications:: None Pre-procedure Diagnosis:: Right sacroiliitis Post-procedure Diagnosis:: Same Indications for Procedure:: Very pleasant 71-year-old male comes our clinic today for right sacroiliac joint injection. Patient has extreme point tenderness of the right SI joint. Patient also complains of right hip and leg radicular symptoms including the anterior thigh. Procedure Details:: Procedure: Right sacroliliac joint injection under fluoroscopy Informed consent was obtained and the risk and benefits of the procedure were explained to the patient.~ The patient was taken to the procedure room and noninvasive monitors were placed including noninvasive blood pressure cuff and pulse oximeter.~ The patient was placed prone on the procedure table.~ The~ [facility] hip was cleansed using Betadine as a cleansing solution.~ C-arm fluorosocpy was used to view the right SI joint.~ The skin and subcutaneous tissues were anesthetized using Lidocaine 1.5% and a 25-gauge needle.~ After this, a 22-gauge spinal needle was inserted under fluoroscopic guidance into the inferior aspect of the right SI joint.~ Omnipaque dye was injected and a good spread was seen throughout the joint.~ After this, approximately 5 mL of bupivacaine 0.25% and Depo-Medrol 40 mg was incrementally injected into the sacroiliac joint.~ The patient tolerated the procedure well with no complications.~ The patient was observed in the Pain Clinic, then discharged home neurologically intact.~ Plan and Disposition:: I reviewed the patient's lumbar MRI with him today. We discussed potential need for lumbar epidural steroid injections in the future. Patient was discharged without incident.
== END 2022-05-14 14:00 | disposition home or self-care (01) ==
PROVIDERS: PCP Internal Medicine Adolescent Medicine; Visit Provider Nurse Anesthetist, Certified Registered
DX: M46.1 Sacroiliitis, not elsewhere classified (principal)
CPT/HCPCS: 27096; G0260; J1040

== ENCOUNTER → 2022-06-04 11:25 | Outpatient (POV) | payer MEDICARE, SELFPAY ==
[2022-06-04 11:31] VITALS: BP 164/73; PULSE 55; RESP 18; O2SAT 97; BMI 31.2
--- NOTE | 2022-06-04 11:58 | EXP.PAIN.SOA ---
[facility] Pain Management SOAP Note Subjective:: Patient is a pleasant 71-year-old male who presents today for follow-up of right SI injection on 05/14/2022. We are currently treating the patient for low back pain, degenerative disc disease of lumbar spine with lumbar radiculopathy symptoms, sacroiliitis. Today he states he had at least 50% improvement following this injection and that he was able to increase his activity with decreased symptoms. Patient states he was feeling so well that he was moving furniture around last week and does feel like he may have aggravated his symptoms. Patient rates his pain a 3 out of 10. Patient denies any change to location or type of pain he experiences. Patient does state this is a aching, throbbing sensation that is worse with increased activity that radiates into his right leg. Patient states he is scheduled to have a MRI on his right knee on the fourth. Patient is also having right hand surgery in [place] tomorrow for a trigger finger release. Patient was previously prescribed baclofen 10 mg at bedtime and states this medicine did provide significant improvement of his symptoms although it did make him sleepy. He is requesting a refill at today's visit. Patient is currently managed with tramadol 50 mg from an outside provider's office. Patient denies any side effects from this medication. He states this medication does help provide improvement of his symptoms. His Preston is [phone]. Its been reviewed and appropriate. Review of Systems: General: No recent weight changes, no fever, no sleep disturbances Respiratory: No cough, no shortness of air, no recurring pulmonary infections Cardiovascular/peripheral vascular: No chest pain, no palpitations, no edema, no shortness of breath Gastrointestinal: No new onset incontinence, normal bowel movements reported Genitourinary: No new onset incontinence Musculoskeletal: Low back pain, right leg pain Psychiatric: [Normal mood/affect] Neurological: [Denies weakness in extremities], [denies balance issues] Objective:: Physical Exam: General: Alert and oriented x3, no acute distress, pleasant and cooperative Lungs: Respirations even and unlabored, symmetrical chest expansion Eyes: PERRL Musculoskeletal: Flexion and extension of lumbar [spine] somewhat guarded secondary to pain, [antalgic gait noted] point tenderness along right SI and positive right Bonnie's, May's, Gaenslen's, compression and distraction exam Neurological: Speech clear, no gross sensory deficit Assessment:: Degenerative disc disease of lumbar spine with lumbar radiculopathy symptoms, low back pain, sacroiliitis Plan:: Patient is experiencing worsening pain in his low back with radiating symptoms into his right leg. Patient did have limited range of motion of his lumbar spine and point tenderness at his right SI as well as positive right Bonnie's, May's, Gaenslen's, compression and distraction exam during today's visit. I have discussed with the patient that he may benefit from repeat right SI injections. Risk and benefits were discussed with the patient. He would like to proceed forward with this plan of care. I will also refill the patient's baclofen 10 mg at bedtime and provide a 1 month supply of this medication. I will also order the patient a compounding cream. We will schedule the patient for a right SI injection. Patient has been instructed to contact the clinic with any concerns before the next appointment. Dr. Gonzalez has reviewed this note and agrees with this plan of care. This note was dictated using voice recognition software and make contain errors or omissions. [facility] Disclaimer: The information contained in this section may have been updated after the patient was seen, as this information can be updated by other users. Medical History Anxiety Arthritis Diabetes GERD (gastroesophageal reflux disease) HLD (hyperlipidemia) HTN
== END | disposition home or self-care (01) ==
PROVIDERS: PCP Internal Medicine Adolescent Medicine; Visit Provider Nurse Practitioner Family
DX: M51.16 Intervertebral disc disorders with radiculopathy, lumbar region (principal); M46.1 Sacroiliitis, not elsewhere classified; Z79.899 Other long term (current) drug therapy
CPT/HCPCS: 99212; G0463

== ENCOUNTER 2022-06-07 11:02 | Day surgery (SDC) | payer MEDICARE, SELFPAY ==
[2022-06-07 11:32] VITALS: BP 155/101; BP 181/93; PULSE 63; PULSE 64; RESP 18; TEMP 36.8; O2SAT 96; O2SAT 97; BMI 31.2
[2022-06-07 11:33] VITALS: BP 181/93; PULSE 64; RESP 18; O2SAT 97
[2022-06-07 11:35] VITALS: BP 184/86; PULSE 59; RESP 18; TEMP 36.8; O2SAT 96
--- NOTE | 2022-06-07 11:58 | EXP.PAIN.PRO ---
Procedure Date: 06/07/22 Time: 11:30 Anesthesiologist:: Hitesh Babb CRNA Complications:: None Pre-procedure Diagnosis:: Right sacroiliitis Post-procedure Diagnosis:: Same Indications for Procedure:: Patient is a pleasant 71-year-old male that comes our clinic today for right sacroiliac joint injection. Patient has extreme point tenderness upon evaluation of the right sacroiliac joint area. He rates his pain 7/10. Patient has had right sacroiliac joint injection in the past. He reports significant pain relief following the injection. Patient describes having difficulty transitioning from sitting to standing. Walking for any distance increases pain in the posterior hip area. Procedure Details:: Procedure: Right sacroliliac joint injection under fluoroscopy Informed consent was obtained and the risk and benefits of the procedure were explained to the patient.~ The patient was taken to the procedure room and noninvasive monitors were placed including noninvasive blood pressure cuff and pulse oximeter.~ The patient was placed prone on the procedure table.~ The~ right hip was cleansed using Betadine as a cleansing solution.~ C-arm fluorosocpy was used to view the right SI joint.~ The skin and subcutaneous tissues were anesthetized using Lidocaine 1.5% and a 25-gauge needle.~ After this, a 22-gauge spinal needle was inserted under fluoroscopic guidance into the inferior aspect of the right SI joint.~ Omnipaque dye was injected and a good spread was seen throughout the joint.~ After this, approximately 5 mL of bupivacaine 0.25% and Depo-Medrol 40 mg was incrementally injected into the sacroiliac joint.~ The patient tolerated the procedure well with no complications.~ The patient was observed in the Pain Clinic, then discharged home neurologically intact.~ Plan and Disposition:: Patient was discharged without incident.
== END 2022-06-07 11:35 | disposition home or self-care (01) ==
LOC: SC.PAINP 11:03
PROVIDERS: PCP Internal Medicine Adolescent Medicine; Visit Provider Nurse Anesthetist, Certified Registered
DX: M46.1 Sacroiliitis, not elsewhere classified (principal)
CPT/HCPCS: 27096; G0260; J1040

== ENCOUNTER → 2022-06-12 12:50 | Outpatient (CLI) | payer MEDICARE, SELFPAY ==
--- NOTE | 2022-06-12 12:52 | MR_ITS ---
FINAL REPORT TECHNIQUE: Multiplanar MR without contrast CLINICAL HISTORY: Right medial knee pain COMPARISON: None FINDINGS: Articular cartilage: There is mild diffuse thickening of the articular cartilage compatible with mild osteoarthritic disease. Marrow signal: Unremarkable Joint fluid: Physiologic. Small Salazar's cyst are noted. Menisci: Probable tiny oblique tear at the junction of the posterior horn and body of the medial meniscus. This only involves the inner 3rd of the meniscus. Ligaments: Collateral and cruciate ligaments intact Ganglion cysts within the upper popliteal fossa measuring up to 15 mm. IMPRESSION: Question tiny oblique tear posterior medial meniscus. Mild degenerative changes. Reviewed, Interpreted and Dictated by Lei Luz MD Transcribed by Jane Stoll Authenticated and [facility]
--- NOTE | 2022-06-12 13:57 | US_ITS ---
PROCEDURE INFORMATION: Exam: US Soft Tissue Head and Neck, Thyroid Exam date and time: 06/12/2022 1:59 PM Age: 71 years old Clinical indication: Other: PT stated had CT chest at ct and seen something in thyroid; Additional info: Thyroid nodule TECHNIQUE: Imaging protocol: Real-time ultrasound scan of the neck with image documentation. Exam focused on the thyroid. COMPARISON: No relevant prior studies available. FINDINGS: Right thyroid lobe: Right lobe measures 4.7 x 2.0 x 2.6 cm. Nodules present within the right lobe measuring 3 x 2 x 3 mm and 2.4 x 1.9 x 2.2 cm. Left thyroid lobe: Left lobe measures 3.6 x 1.2 x 1.2 cm. Nodule present within the left lobe measuring 4 x 2 x 4 mm. Isthmus: Isthmus measures 4 mm. IMPRESSION: TI-RADS 3. Benign examination. Short-term follow-up is recommended with repeat study in 6 months.
== END ==
PROVIDERS: PCP Internal Medicine Adolescent Medicine; Visit Provider Internal Medicine Adolescent Medicine
DX: M25.561 Pain in right knee (principal); E04.1 Nontoxic single thyroid nodule
CPT/HCPCS: 73721; 76536

== ENCOUNTER → 2022-06-20 10:12 | Outpatient (POV) | payer MEDICARE, SELFPAY ==
[2022-06-20 10:38] VITALS: BP 137/83; PULSE 88; RESP 18; O2SAT 97; BMI 30.7
--- NOTE | 2022-06-20 10:40 | EXP.PAIN.SOA ---
[facility] Pain Management SOAP Note Subjective:: Patient is a pleasant 71-year-old male who presents today for follow-up of right SI injection on 06/07/2022. We are currently treating the patient for degenerative disc disease of lumbar spine with lumbar radiculopathy symptoms, sacroiliitis, low back pain. Today he states he has had at least 75% improvement following this last injection and that it still continuing to provide relief. He does rate his pain today a 1 out of 10. Patient states his pain is primarily in his right knee. Patient states he did recently have imaging of it that did show arthritis and a medial meniscus tear however mild. Patient does describe this as a aching sensation that is worse with increased activity or range of motion. Patient is currently managed baclofen 10 mg at bedtime. Patient denies any side effects from this medication. He is also prescribed tramadol 50 mg from his primary care doctor. Patient denies any side effects from this medication. He states this medication does help. Patient is scheduled to start physical therapy on Friday. Patient was ordered compounding cream however he states his insurance will not cover this so he did not proceed forward. His Preston is [phone]. Its been reviewed and appropriate. Review of Systems: General: No recent weight changes, no fever, no sleep disturbances Respiratory: No cough, no shortness of air, no recurring pulmonary infections Cardiovascular/peripheral vascular: No chest pain, no palpitations, no edema, no shortness of breath Gastrointestinal: No new onset incontinence, normal bowel movements reported Genitourinary: No new onset incontinence Musculoskeletal: Right knee pain Psychiatric: [Normal mood/affect] Neurological: [Denies weakness in extremities], [denies balance issues] Objective:: Physical Exam: General: Alert and oriented x3, no acute distress, pleasant and cooperative Lungs: Respirations even and unlabored, symmetrical chest expansion Eyes: PERRL Musculoskeletal: Flexion and extension of right knee somewhat guarded secondary to pain, [antalgic gait noted] Neurological: Speech clear, no gross sensory deficit ORT score updated with minimal risk of 1 Assessment:: Degenerative disc disease of lumbar spine with lumbar radiculopathy symptoms, sacroiliitis, low back pain, right knee pain. Plan:: Patient is experiencing limited range of motion and pain in his right knee. Patient's imaging did show osteoarthritis and a medial meniscus tear. I have discussed with the patient that he may benefit from diagnostic intra-articular knee injections. Risk and benefits were discussed with the patient. He would like to proceed forward with this plan of care. We will schedule him for a diagnostic right knee intra-articular injection. Patient has been instructed to contact the clinic with any concerns before the next appointment. Dr. Gonzalez has reviewed this note and agrees with this plan of care. This note was dictated using voice recognition software and make contain errors or omissions. [facility] Disclaimer: The information contained in this section may have been updated after the patient was seen, as this information can be updated by other users. Medical History Anxiety Arthritis Diabetes GERD (gastroesophageal reflux disease) HLD (hyperlipidemia) HTN (hypertension) Surgical History H/O colonoscopy Family History Other No significant family history Social History Smoking Status: Never smoker second hand exposure: No alcohol intake: current substance use type: denies use current occupational status: retired Travel in the last 8 weeks: None household members: spouse housing: house caffeine: Yes
== END ==
PROVIDERS: PCP Internal Medicine Adolescent Medicine; Visit Provider Nurse Practitioner Family
DX: M51.16 Intervertebral disc disorders with radiculopathy, lumbar region (principal); M46.1 Sacroiliitis, not elsewhere classified; M25.561 Pain in right knee
CPT/HCPCS: 99212; G0463

== ENCOUNTER 2022-06-25 11:09 | Day surgery (SDC) | payer MEDICARE, SELFPAY ==
[2022-06-25 11:25] VITALS: BP 122/67; PULSE 71; RESP 18; TEMP 36.3; O2SAT 97; BMI 30.7
--- NOTE | 2022-06-25 11:59 | P.PCN_ITS ---
Procedure Date: 06/25/22 Time: 11:59 Anesthesiologist:: Hitesh Babb CRNA Complications:: None Pre-procedure Diagnosis:: Degenerative disc disease of lumbar spine with lumbar radiculopathy symptoms, sacroiliitis, low back pain Post-procedure Diagnosis:: Same Indications for Procedure:: Patient is a pleasant 71-year-old male who presents today for right intra- articular knee injection. We are currently treating the patient for degenerative disc disease of lumbar spine with lumbar radiculopathy symptoms, sacroiliitis, low back pain. Today he rates his pain a 4 out of 10. Patient denies any new trauma or injury. Patient denies any change to location or type of pain he experiences. Patient does describe this as a aching sensation that is worse with increased activity or range of motion movement. He is currently prescribed tramadol 50 mg from his primary care doctor. We will proceed forward with this injection. General: Alert and oriented x3, no acute distress, pleasant and cooperative Lungs: Respiration even unlabored, symmetrical chest expansion Eyes: PERRL Musculoskeletal: Flexion and extension of lumbar spine somewhat guarded secondary to pain, antalgic gait noted Neurological: Speech clear, no gross sensory deficit Procedure Details:: Informed consent was obtained risk and benefits of the procedure were explained to the patient. Patient was taken the procedure room he has right knee were prepped using ChloraPrep. A 25-gauge needle was used to inject 10 mL bupivacaine 0.25% and Depo-Medrol 40 mg into his right knee. We did a total of 40mg Depo- Medrol for his right knees. The patient tolerated the procedure well with no complications. Plan and Disposition:: Patient will return to clinic in 2 weeks for reevaluation of symptoms and follow-up. Patient has been counseled to contact the office with any questions or concerns before the next appointment date. Dr. Gonzalez has read this note and agrees with this plan of care. This note was dictated using voice recognition software and may contain errors or omissions.
[2022-06-25 12:01] VITALS: BP 99/56; PULSE 65; RESP 18; O2SAT 97
== END 2022-06-25 12:01 | disposition home or self-care (01) ==
PROVIDERS: PCP Internal Medicine Adolescent Medicine; Visit Provider Nurse Anesthetist, Certified Registered
DX: M51.16 Intervertebral disc disorders with radiculopathy, lumbar region (principal); M46.1 Sacroiliitis, not elsewhere classified
CPT/HCPCS: 20610; 77002; J1040

== ENCOUNTER → 2022-07-08 13:11 | Outpatient (POV) | payer MEDICARE, SELFPAY ==
[2022-07-08 15:01] VITALS: BP 93/48; PULSE 61; RESP 18; O2SAT 96; BMI 30.7
--- NOTE | 2022-07-08 15:22 | EXP.PAIN.SOA ---
[facility] Pain Management SOAP Note Subjective:: Patient is a pleasant 71-year-old male who presents today for follow-up of right knee intra-articular injection on 06/25/2022. We are currently treating the patient for degenerative disc disease of lumbar spine with lumbar radiculopathy symptoms, sacroiliitis, low back pain, right knee pain. Today he states he has had significant improvement following this injection however he continues to experience pain in his right knee. He rates it a 7 out of 10. Patient denies any new trauma or injury. Patient denies any change location or type of pain he experiences. Patient states he is also been having low back pain along the right side patient denies any radiating symptoms. Patient does state this is a aching sensation that is worse with certain movements and will occasionally have shooting pain. Patient has recently had an MRI of his right knee and is interested in possibly having a referral to an orthopedic doctor for surgical intervention. Patient is currently prescribed Percocet 5 mg from an outside provider. Patient denies any side effects from this medication. Patient was previously on tramadol 50 mg from his primary care doctor. Patient has also recently started physical therapy with minimal improvement. Patient was prescribed compounding cream in the past however his insurance did not cover this medication. His Preston is [phone]. Its been reviewed and appropriate. Review of Systems: General: No recent weight changes, no fever, no sleep disturbances Respiratory: No cough, no shortness of air, no recurring pulmonary infections Cardiovascular/peripheral vascular: No chest pain, no palpitations, no edema, no shortness of breath Gastrointestinal: No new onset incontinence, normal bowel movements reported Genitourinary: No new onset incontinence Musculoskeletal: Low back pain, right knee pain Psychiatric: [Normal mood/affect] Neurological: [Denies weakness in extremities], [denies balance issues] Objective:: Physical Exam: General: Alert and oriented x3, no acute distress, pleasant and cooperative Lungs: Respirations even and unlabored, symmetrical chest expansion Eyes: PERRL Musculoskeletal: Flexion and extension of lumbar [spine] somewhat guarded secondary to pain, [antalgic gait noted] point tenderness along right lumbar paraspinous muscles Neurological: Speech clear, no gross sensory deficit ORT score updated with low risk Assessment:: Degenerative disc disease of lumbar spine with lumbar radiculopathy symptoms, sacroiliitis, low back pain, right knee pain Plan:: Patient continues to experience significant pain in his low back along the right side with point tenderness noted as well as continued right knee pain. I will send a referral for [facility] for his right knee pain. I have also discussed with the patient that he may benefit from trigger point injections at his right lumbar paraspinous muscles. Risk and benefits were discussed with the patient. He would like to proceed forward with this plan of care. We will schedule him for diagnostic trigger point injections at his right lumbar paraspinous muscles. Patient has been instructed to contact the clinic with any concerns before the next appointment. Dr. Gonzalez has reviewed this note and agrees with this plan of care. This note was dictated using voice recognition software and make contain errors or omissions. [facility] Disclaimer: The information contained in this section may have been updated after the patient was seen, as this information can be updated by other users. Medical History Anxiety Arthritis Diabetes GERD (gastroesophageal reflux disease) HLD (hyperlipidemia) HTN (hypertension) Surgical History H/O colonoscopy Family History Other No significa
== END ==
PROVIDERS: PCP Internal Medicine Adolescent Medicine; Visit Provider Nurse Practitioner Family
DX: M51.16 Intervertebral disc disorders with radiculopathy, lumbar region (principal); M46.1 Sacroiliitis, not elsewhere classified; M25.561 Pain in right knee
CPT/HCPCS: 99212; G0463

== ENCOUNTER 2022-07-18 08:00 | Outpatient (RCR) | payer MEDICARE, SELFPAY ==
--- NOTE | 2022-06-25 17:04 | HMH.PTOPEV ---
PT Outpatient Evaluation Rehab PT Outpatient Evaluation Start: 06/25/22 14:53 Freq: Status: Active Protocol: Document 06/25/22 14:53 LUCRECIACHRISTIANA (Rec: 06/25/22 17:03 JEANIE [id number]) E-signed By Elvia Valle, PT Outpatient Therapy Subjective History Subjective History Pt is a 71 y/o male that reports insidious onset of low back pain last summer and onset of right leg pain in March. Pt reports onset of right leg pain occurred after getting up from working in his crawl space. Pt reports intermittent paresthesia of the right knee and foot and some dull pain in the right thigh muscle. Pt also reports the right knee feels unstable with stair navigation at times , denies recent falls. Pt reports he sees pain management and received an inejction in his right knee this morning. Pt also reports he has had 2 lumbar spine injections, most recent in May 2022, which improved his pain from 10/10 to 3/10. Pt reports prior to injections he was having pain/difficulty with prolonged standing, walking, bending and lifting but has improved since. Pt had a lumbar MRI performed at [facility] on 04/16/22 with results as follows: Diffuse disc bulge with spinal and bilateral neural foraminal narrowing at L2-L3. Multilevel neural foraminal narrowing most evident on the right at L3-L4. Pt also had an MRI of the right knee at [facility] on 06/12/22 with impression as follows: Question tiny oblique tear posterior medial meniscus. Mild degenerative changes. Medical History: Hypertension Chief Complaint Pain,Stiff,Paresthesia, Weakness Symptom Type
== END 2022-07-18 08:05 | disposition home or self-care (01) ==
LOC: PT 08:00
PROVIDERS: PCP Internal Medicine Adolescent Medicine; Visit Provider Nurse Practitioner Family
DX: M54.41 Lumbago with sciatica, right side (principal)
CPT/HCPCS: 97010; 97014; 97110; 97163; 97535; G0283

== ENCOUNTER → 2022-08-20 08:56 | Outpatient (POV) | payer MEDICARE, SELFPAY | PROVIDERS: Visit Provider Dermatology | DX: Z00.00 Encounter for general adult medical examination without abnormal findings (principal) ==

== ENCOUNTER → 2023-01-23 14:47 | Outpatient (CLI) | payer MEDICARE, SELFPAY ==
--- NOTE | 2023-01-23 14:50 | US_ITS ---
FINAL REPORT TECHNIQUE: Limited sonographic images of the thyroid were obtained. CLINICAL HISTORY: NODULE COMPARISON: 06/12/2022 FINDINGS: US THYROID/HEAD OR NECK SOFT TISSUE The right lobe of the thyroid measures 4.0 x 1.9 x 2.7 cm. There is a dominant nodule which is cystic, solid, and isoechoic measuring 23 x 17 x 24 mm, previously measured 26 x 24 x 18 mm. This is stable since prior. Finding is consistent with TI-RADS category 2. The left lobe of the thyroid measures 3.6 x 1.4 x 1.2 cm. There is a solid, hypoechoic nodule measuring 5 x 4 x 3 mm, previously measured 4 x 4 x 2 mm. Finding is slightly larger than previous consistent with TI-RADS category 4. The isthmus measures 0.66 cm. IMPRESSION: Bilateral thyroid nodules, stable on the right and slightly larger on the left. Reviewed, Interpreted and Dictated by Dean Buck III, MD Transcribed by Mitali Gerard Authenticated and [facility]
== END ==
PROVIDERS: PCP Internal Medicine Adolescent Medicine; Visit Provider Internal Medicine Adolescent Medicine
DX: E04.1 Nontoxic single thyroid nodule (principal)
CPT/HCPCS: 76536

== ENCOUNTER → 2023-02-26 07:37 | Outpatient (CLI) | payer MEDICARE, SELFPAY ==
--- NOTE | 2023-02-26 07:41 | US_ITS ---
FINAL REPORT CLINICAL HISTORY: .JOSHUA TOMLINSON -- RT THYROID FNA FINDINGS: Ultrasound guided thyroid biopsy. Attending radiologist: Dr. Tang. Physician Studio Artist: Joshua Wong PA-C HISTORY: Right thyroid nodule PROCEDURE: After informed consent was obtained and a time-out was performed, the patient was prepped and draped in usual sterile fashion over the right neck. Utilizing local anesthesia and sterile technique with a 25-gauge needle, access to lesion was obtained. Three passes were made. The patient received no conscious sedation. The patient tolerated procedure well and left the department in good condition. IMPRESSION: Status post ultrasound guided biopsy of thyroid without immediate complication. Films reviewed , interpreted and dictated by Dr. Tang. Transcribed by Joshua Wong PA-C. Reviewed, Interpreted and Dictated by Joaquim Tang MD Transcribed by DAVI Metzger Authenticated and [facility]
== END ==
PROVIDERS: PCP Internal Medicine Adolescent Medicine; Visit Provider Nurse Practitioner
DX: Z86.39 Personal history of other endocrine, nutritional and metabolic disease (principal); E04.1 Nontoxic single thyroid nodule
CPT/HCPCS: 10005; 76536; 88173

== ENCOUNTER → 2023-03-03 10:23 | Outpatient (CLI) | payer MEDICARE, SELFPAY ==
--- NOTE | 2023-03-03 10:28 | XR_ITS ---
FINAL REPORT CLINICAL HISTORY: LEFT ANTERIOR SHOULDER PAIN FINDINGS: 2 views of the left shoulder were obtained. There is no prior exam for comparison. There is no fracture or dislocation. There is degenerative joint disease. Soft tissues are normal. IMPRESSION: No acute osseous abnormality of the left shoulder. Reviewed, Interpreted and Dictated by Kyleigh Sexton MD Transcribed by Dago Villasenor Authenticated and [facility]
== END ==
PROVIDERS: PCP Internal Medicine Adolescent Medicine; Visit Provider Internal Medicine Adolescent Medicine
DX: M25.512 Pain in left shoulder (principal)
CPT/HCPCS: 73030

== ENCOUNTER 2023-04-09 08:00 | Outpatient (RCR) | payer MEDICARE, SELFPAY ==
--- NOTE | 2023-03-19 11:09 | HMH.OTOPEV ---
OT Inpatient Evaluation Rehab OT Outpatient Eval Start: 03/19/23 10:30 Freq: Status: Active Protocol: Document 03/19/23 10:30 RMGREG (Rec: 03/19/23 11:09 [id number] E-signed By Florence Juares, OT Outpatient Therapy Subjective History Subjective History Pt is a 72 year old male who reports to therapy for initial evaluation to left shoulder. Pt's shoulder originally began having pain at left shoulder ~3-4 months ago. Pt does not recall a specific injury causing the pain to start. Pt demonsrates with a slight decline in AROM and strength at left shoulder. He reports pain in shoulder once he has worked the shoulder throughout the day. Pt is retired, but is still very active. Therapist will continue to see patient in order to address all deficits. New diagnosis of cancer in past 12 No months? Chief Complaint Pain,Stiff,Weakness Symptom Type Ache,Throb,Dull Symptoms Relieved By Rest/Positioning,OTC Meds Symptoms Aggravated By Physical Activity,Lifting Prior Functional Limitations None Current Functional Limitations Reaching,Lifting,Housework, Dressing,Driving,Sleeping, Recreation Activity Symptom Description Intermittent,Activity Dependent Level of pain today (0-10) 2 Pain scale - at its best (0-10) 0 Pain scale - at its worst (0-10) 7 Shoulder/Elbow Eval Shoulder Objective Measurements Shoulder ROM Left Shoulder Abduction Active Range of 147 degrees Motion (degrees) Shoulder Flexion Active Range of Motion 145 degrees (degrees) Query Text: Shoulder External Rotation Active Range 55 degrees of Motion (degrees) Shoulder Internal Rotation Active Range 70 degrees of Motion (degrees) pain with active ROM shoulder exam left standard pain with passive ROM shoulder exam left standard decreased ROM shoulder exam standard left Shoulder MMT Shoulder Abduction Strength Grade 4- Good- Shoulder Flexion Strength Grade 4- Good- Shoulder External Rotation Strength 4- Good- Grade Shoulder Internal Rotation Strength 4- Good- Grade Shoulder Strength Patient Testing Sitting Position Shoulder Special Tests impingement sign present shoulder exam left standard Shoulder Empty Can (Supraspinatus) Test Positive Left Shoulder Castle-Trevor Impingement Positive Left Test Shoulder Neer Impingement Test Positive Left Elbow Objective Measurements QuickDASH Activities Please rate your ability to do the following activities in the last week by selecting the number below the appropriate response. 1. Open a tight or new jar. No difficulty 2. Do heavy child protective investigator (e.g., wash No difficulty vaca, floors). 3. Carry a shopping bag or briefcase. No difficulty 4. Wash your back. No difficulty 5. Use a knife to cut food. No difficulty 6. Recreational activities in which you Moderate difficulty take some force or impact through your arm, shoulder, or hand (e.g., golf, hammering, tennis, etc.). 7. During the past week, to what extent Moderately has your arm, shoulder or hand problem interfered with your normal social activities with family, friends, neighbors or groups? 8. During the past week, were you Slightly limited limited in your work or other regular daily activites as a result of your arm, shoulder or hand problem? 9. Arm, shoulder or hand pain. Moderate 10. Tingling (pins and needles) in your None arm, shoulder or hand. 11. During the past week, how much Moderate difficulty difficulty have you had sleeping because of the pain in your arm, shoulder or hand? Quick DASH 20 Work Module (optional) The following questions ask about the impact of your arm, shoulder or hand problem on your ability to work (including homemaking if that is your main work role). Do you work? No Sports/Performing Arts Module (optional) The following questions relate to the impact of your arm, shoulder or hand problem on playing your musical instrument or sport or both. If you play more than one sport or instrument (or play both), please answer with respect to the activity which is most important to you. Do you play a sport or instrument? No OT Outpatient Assessment Impairments Problems/Impairments Palpation Tenderness,Impaired Range of Motion,Impaired Strength,Impaired Endurance, Impaired Lifting,Impaired Dressing,Impaired Household Care,Impaired Recreational Activities,Impaired Work Activities,Subjective C/O Pain Prognosis Rehab Potential Good Clinical Impression Consistent with Diagnosis Yes Short Term Goals Number of Weeks 3 Increase Range of Motion Yes: Flex: 155 Abd: 155 ER:75 IR: 70 Increase Strength Yes: 4/5 throughout left shoulder Increase Endurance Yes: Pt will tolerate L shoulder exercises for ~20 min prior to rest. Decrease Subjective C/O Pain Yes: 5/10 at worst Patient to be Ind w/ HEP Yes: Raulito exercises [facility] Goals Number of Weeks 6 Increase Range of Motion Yes: Flex: 165 Abd: 165 ER: 80 Increase Strength Yes: 5/5 throughout left shoulder Increase Endurance Yes: Pt will tolerate L shoulder exercises for ~30 min prior to rest. Decrease Subjective C/O Pain Yes: 3/10 at worst Patient to be Ind w/ Advanced HEP Yes: Advanced strengthening exercises Outpatient Therapy Plan of Care Treatment Plan May Include Therapeutic Exercise Including Home Yes Exercise Program Manual Therapy Techniques Yes Neuromuscular Re-education Yes Therapeutic Activities to Return to Yes Previous Functional/Work Level ADL/Self Care Education Yes Thermal Modalities Yes Electrical Stimulation Yes Ultrasound/Phonophoresis Yes Iontophoresis Yes Parrafin Yes Orthotics/Bracing/Splinting Yes Massage Yes Eval/Re-Eval Yes Frequency Times per week 2 Duration Number of Weeks 6 Addendums This patient is a candidate for social No or vocational rehab? Patient/Guardian verbally acknowledges Yes understanding of treatment program and consents to further treatment? Patient/Guardian verbally acknowledges Yes understanding of diagnosis, prognosis and goals for treatment? Eval Complexity OT Charge 89758 - Moderate Complexity PHYSICIAN CERTIFICATION: I certify the specified therapy services for Jon Scott are required, authorized, and reviewed every 30 days.
== END 2023-04-09 09:00 | disposition home or self-care (01) ==
LOC: OT 08:00
PROVIDERS: PCP Internal Medicine Adolescent Medicine; Visit Provider Internal Medicine Adolescent Medicine
DX: M75.102 Unspecified rotator cuff tear or rupture of left shoulder, not specified as traumatic (principal)
CPT/HCPCS: 97010; 97014; 97110; 97140; 97166; 97530; G0283

== ENCOUNTER → 2023-04-16 14:06 | Outpatient (POV) | payer MEDICARE, SELFPAY ==
--- NOTE | 2023-04-16 14:15 | EXP.PAIN.SOA ---
[facility] Pain Management SOAP Note Subjective:: Patient is a pleasant 71-year-old male who presents today for follow-up. We are currently treating the patient for degenerative disc disease of lumbar spine with lumbar radiculopathy symptoms, sacroiliitis, low back pain, right knee pain. Today he rates it a 8 out of 10. Patient denies any new trauma or injury. He states he has been experiencing worsening pain in his low back that radiates down his entire left leg. Patient denies any radiating symptoms into his right leg. He describes this as an aching, throbbing with numbness and tingling sensation that is worse with increased activity. He does state that bending over provide some improvement of his symptoms. He does state the pain is interfering with his ability perform activities of daily living such as cooking or cleaning or even simple ambulation. Patient is currently prescribed Percocet 5 mg 3 times a day and alprazolam from an outside provider. Patient denies any side effects from this medication. Patient has tried and failed conservative therapy such as oral medications, heat and ice, topicals, physical therapy, at home stretching and exercise. His Preston has been reviewed and is appropriate. Review of Systems: General: No recent weight changes, no fever, no sleep disturbances Respiratory: No cough, no shortness of air, no recurring pulmonary infections Cardiovascular/peripheral vascular: No chest pain, no palpitations, no edema, no shortness of breath Gastrointestinal: No new onset incontinence, normal bowel movements reported Genitourinary: No new onset incontinence Musculoskeletal: Low back pain, left leg pain Psychiatric: [Normal mood/affect] Neurological: [Denies weakness in extremities], [denies balance issues] Objective:: Physical Exam: General: Alert and oriented x3, no acute distress, pleasant and cooperative Lungs: Respirations even and unlabored, symmetrical chest expansion Eyes: PERRL Musculoskeletal: Flexion and extension of lumbar [spine] somewhat guarded secondary to pain, [antalgic gait noted] positive left leg raise with decreased sensation to light touch and decreased reflexes Neurological: Speech clear, no gross sensory deficit Assessment:: Degenerative disc disease of lumbar spine with lumbar radiculopathy symptoms, sacroiliitis, low back pain, right knee pain, left leg pain Plan:: Patient is experiencing worsening pain in his low back with radiating symptoms down his entire left leg. Patient did have limited range of motion of his lumbar spine during today's visit as well as a positive left leg raise and decreased sensation to light touch and decreased reflexes. I have discussed with the patient that he may benefit from a left transforaminal epidural steroid injection. Risk and benefits were discussed with the patient and he would like to proceed forward with this plan of care. Patient is not on any blood thinners other than a baby aspirin. We will schedule the patient for a left transforaminal epidural steroid injection L4-L5 and L5-S1. Patient has been instructed to contact the clinic with any concerns before the next appointment. Dr. Gonzalez has reviewed this note and agrees with this plan of care. This note was dictated using voice recognition software and make contain errors or omissions. [facility] Disclaimer: The information contained in this section may have been updated after the patient was seen, as this information can be updated by other users. Medical History Anxiety Arthritis Diabetes Exposure to Agent [place] GERD (gastroesophageal reflux disease) History of thyroid nodule HLD (hyperlipidemia) HTN (hypertension) Surgical History H/O colonoscopy Family History Other No significant family history Social History (Reviewed 04/02/23 @ 14:55 b
[2023-04-16 15:26] VITALS: BP 142/100; PULSE 50; RESP 20; O2SAT 98; BMI 32.2
== END ==
PROVIDERS: PCP Internal Medicine Adolescent Medicine; Visit Provider Nurse Practitioner Family
DX: M51.16 Intervertebral disc disorders with radiculopathy, lumbar region (principal); M46.1 Sacroiliitis, not elsewhere classified; M25.561 Pain in right knee; M79.605 Pain in left leg
CPT/HCPCS: 99212; G0463

== ENCOUNTER → 2023-04-16 14:46 | Outpatient (CLI) | payer MEDICARE, SELFPAY ==
[2023-04-16 15:38] LABS: Basophils # 0.1 K/mm3 (0-0.2); Basophils % 1.3 % (0.1-2.0); Eosinophils % 11.4 % (0.1-12.0); Hematocrit 38.9 % (42.0-52.0); Hemoglobin 13.2 g/dL (14.1-18.0); Lymphocytes % 34.3 % (10-50); Mean Corpuscular HGB Conc 33.8 g/dL (31.8-35.4); Mean Corpuscular Hemoglobin 30.7 pg (27.0-31.2); Mean Corpuscular Volume 90.7 fl (80-94); Mean Platelet Volume 8.8 fl (7.4-10.4); Monocytes # 0.6 K/mm3 (0.1-1.0); Monocytes % 6.9 % (1.7-9.3); Platelet Count 233 K/mm3 (142-424); Red Blood Count 4.29 M/mm3 (4.60-6.20); Red Cell Distribution Width 14.6 % (11.5-17.5); White Blood Count 8.7 K/mm3 (4.8-10.8)
[2023-04-16 15:52] LABS: Alanine Aminotransferase 25 U/L (12-78); Albumin Level 4.3 g/dl (3.5-5.0); Albumin/Globulin Ratio 1.8 (1.1-1.8); Alkaline Phosphatase 87 U/L (38-126); Anion Gap 13.5 mEq/L (5-15); Aspartate Amino Transferase 29 U/L (17-59); Bilirubin,Total 0.9 mg/dl (0.2-1.3); Blood Urea Nitrogen 18 mg/dl (9-20); Calcium 9.6 mg/dl (8.4-10.2); Carbon Dioxide 26 mmol/L (22.0-30.0); Chloride 103 mmol/L (98-107); Estimated Glomerular Filt Rate 73 ml/min (>60); GFR (African American) 88 ML/MIN (>60); Globulin 2.4 g/dL (1.3-3.2); Glucose 104 mg/dl (74-100); Potassium 4.5 mmoL/L (3.5-5.1); Sodium 138 mmol/L (136-145); Total Protein,Serum 6.7 g/dl (6.3-8.2)
== END ==
PROVIDERS: PCP Internal Medicine Adolescent Medicine; Visit Provider Otolaryngology
DX: E04.1 Nontoxic single thyroid nodule (principal)
CPT/HCPCS: 36415; 80053; 85025; 99212; G0463

== ENCOUNTER 2023-04-25 13:00 | Day surgery (SDC) | payer MEDICARE, SELFPAY ==
[2023-04-25 13:23] VITALS: BP 124/75; PULSE 65; RESP 16; TEMP 36.2; O2SAT 95; BMI 31.2
[2023-04-25 14:16] VITALS: BP 127/76; PULSE 62; RESP 18; O2SAT 97
[2023-04-25 14:19] VITALS: BP 127/76; PULSE 62; RESP 18; O2SAT 97
[2023-04-25 14:20] VITALS: BP 141/71; PULSE 59; RESP 18; O2SAT 95
--- NOTE | 2023-04-25 14:58 | P.PCN_ITS ---
Procedure Date: 04/25/23 Time: 14:58 Anesthesiologist:: Jeffry Gonzalez MD Complications:: None Pre-procedure Diagnosis:: Degenerative disease of lumbar spine with lumbar radiculopathy symptoms Post-procedure Diagnosis:: Same Indications for Procedure:: This patient is a pleasant 72-year-old white male who we are treating for low back pain with lumbar radiculopathy symptoms. He has increasing pain down his right leg today. Previously this was the left leg. We were scheduled to do a transforaminal epidural steroid injection on the left side however since he is having pain down both sides we will do a lumbar pleural steroid injection under fluoroscopy today. He is currently taking Percocet 5 mg 3 times a day and alprazolam from an outside provider. Procedure Details:: Informed consent was obtained and the risk and benefits of the procedure was explained to the patient. The patient was taken to the procedure room. The patient was placed prone on the procedure table. The patient was prepped and draped in sterile fashion. C-arm fluoroscopy was used to view the lumbar spine. Skin and subcutaneous tissues were anesthetized using lidocaine. I placed an 18-gauge epidural needle and advanced into the L4-L5 interspace using fluo roscopic guidance and [id number] to air. After confirmation of needle placement in the epidural space with dye I injected 2 mL of lidocaine 1.5% with Depo-Medrol 80 mg. Patient tolerated the procedure well with no complications. Plan and Disposition:: We will follow-up with him in 2 weeks. Will reevaluate symptoms at that time.
== END 2023-04-25 14:20 | disposition home or self-care (01) ==
LOC: SC.PAINP 13:00
PROVIDERS: PCP Internal Medicine Adolescent Medicine; Visit Provider Anesthesiology
DX: M51.16 Intervertebral disc disorders with radiculopathy, lumbar region (principal)
CPT/HCPCS: 62323; J1040; Q9966

== ENCOUNTER 2023-04-30 07:21 | Day surgery (SDC) | payer MEDICARE, SELFPAY ==
[2023-04-28 08:18] VITALS: BMI 31.2
[2023-04-30] VITALS (10 sets, daily range): BP systolic 114–157; BP diastolic 57–88; PULSE 63–88; RESP 16–18; TEMP 36.1–37.2; O2SAT 92–97
--- OUTSIDE RECORDS SUMMARY | 2023-04-30 07:24 | XMS_ITS | Patient Health Record ---
Author Name Unknown Organization [facility] Address [address] [place] [address] Care Team Providers Care Social Worker Masters Name Role Phone Oren Perez Primary Care Provider MarieMelissa Unavailable [phone] ALLERGIES No Known Allergies RESULTS Component Value Reference Range Notes LIPID PANEL, STANDARD (7600) Reviewed date:01/14/2023 08:28:39 PM Interpretation: Performing Lab:[id number], [place] [id number] Terrence Diaz Notes/Report: CHOLESTEROL, TOTAL 126 <200 mg/dL HDL CHOLESTEROL 36 > OR = 40 mg/dL TRIGLYCERIDES 177 <150 mg/dL LDL-CHOLESTEROL 65 Reference range: <100 Desirable range <100 mg/dL for primary prevention; <70 mg/dL for patients with CHD or diabetic patients with > or = 2 CHD risk factors. LDL-C is now calculated using the Mario-Enmanuel calculation, which is a validated novel method providing better accuracy than the Friedewald equation in the estimation of LDL-C. Mario SS et al. LUCIANA. 2013;310(19): 1014-5106 (http://education.[employer].com/faq/MEM069) CHOL/HDLC RATIO 3.5 <5.0 (calc) NON HDL CHOLESTEROL 90 <130 mg/dL (calc) For patients with diabetes plus 1 major ASCVD risk factor, treating to a non-HDL-C goal of <100 mg/dL (LDL-C of <70 mg/dL) is considered a therapeutic option. COMPREHENSIVE METABOLIC PANE L (88312) Reviewed date:01/14/2023 08:28:39 PM Interpretation: Performing
--- NOTE | 2023-04-30 08:51 | ECG_ITS ---
APPROVED REPORT Exam: Resting ECG HR:61 bpm ECG Measurements Heart Rate 61 AXES WV 176 P 18 QRSd 144 QRS -1 QT 442 T 56 QTc 446 Conclusion SINUS RHYTHM RIGHT BUNDLE BRANCH BLOCK [120+ ms QRS DURATION, UPRIGHT V1, 40+ ms S IN I/aVL/V4/V5/V6] MINIMAL VOLTAGE CRITERIA FOR LVH, CONSIDER NORMAL VARIANT [MEETS CRITERIA IN ONE OF: R(aVL), S(V1), R(V5), R(V5/V6)+S(V1)] ABNORMAL ECG UNCONFIRMED REPORT Electronically signed by : Oren Perez MD 04/30/2023 17:10:29
[2023-04-30 09:07] LABS: POC Glucose,Bedside 120 (70-110)
--- NOTE | 2023-04-30 11:29 | P.PNANES_ITS ---
[facility] Disclaimer: The information contained in this section may have been updated after the patient was seen, as this information can be updated by other users. Medical History (Updated 04/30/23 @ 09:32 by Ronaldo Cummings RN) Anxiety Arthritis CAD (coronary artery disease) Diabetes Exposure to Agent [place] GERD (gastroesophageal reflux disease) History of thyroid nodule HLD (hyperlipidemia) HTN (hypertension) Surgical History (Updated 04/30/23 @ 09:32 by Ronaldo Cummings RN) H/O colonoscopy Hx of CABG Family History Other No significant family history Social History Smoking Status: Never smoker second hand exposure: No alcohol intake: never substance use type: denies use current occupational status: retired Travel in the last 8 weeks: None household members: spouse housing: house caffeine: Yes [facility] Anesthesia Checklist Patient Identification Patient Identification: Arm Band, Family and Verbal (Name & ) Structural Data Admitted From: Home Planned Operative Procedure/s: RT. Thyroid lobectomy Consent for Planned Operative Procedure(s) Verified: Yes Verified Documents: Surgical Consent and History and Physical NPO Status Verified Time NPO: 20:30 Chart Verification Results Verified: CBC, BMP and ECG Additional verifications Fingerstick Blood Glucose: 120 Patient : No Anesthesia Reactions: No Hx Blood Transfusions: No Blood Transfusion Reaction: No Cephalosporin Allergy: No Cardiovascular Assessment Heart Sounds: S1 & S2 Pulse Rhythm: Irregular Peripheral Edema: No Airway Assessment Mallampati Score:: Class II C-Spine Mobility Assessed: Yes (FROM) TMJ Mobility Assessed: Yes Dentition: Poor Dentition (Top RT. pre-molar loose) Neurological Assessment Level of Consciousness: Awake, Alert, Appropriate and Follows Commands Hx Seizures: No Numbness or tingling in extremities: No Anesthesia Plan Anesthesia Risk discussed: Yes Anesthesia Plan: Verified ASA Class: III Anesthesia Type: General
--- NOTE | 2023-04-30 14:19 | EXP.OP.NOTE ---
Date of procedure: 04/30/23 Pre-op Diagnosis:: Right thyroid nodule Post-op Diagnosis:: Right thyroid nodule Procedure performed:: Right thyroid lobectomy with intraoperative monitoring of recurrent laryngeal nerve Surgeon:: Devan Malagon MD SUPERVISOR PIPE JOINTS:: Other Anesthesia: GETA Estimated blood loss (mL): 20 Operative findings:: Right thyroid lobe was normal in size but palpation showed small firm nodules that were encapsulated. Recurrent laryngeal nerve was identified and preserved. Parathyroid glands were both identified and preserved Operative note:: The patient was brought to the operating room and after adequate general anesthesia the neck was prepped and draped in the usual sterile fashion and nerve integrity monitoring electrodes placed to monitor the recurrent laryngeal nerves bilaterally. An incision was made in the skin fold overlying the palpable thyroid and carried through the underlying platysma and then subplatysmal flaps elevated superiorly and inferiorly. The strap muscles were then divided at midline and then self-retaining retractor was applied. The thyroid isthmus was elevated from the anterior tracheal wall and then sequentially isolated divided and ligated with harmonic scalpel. The anterior suspensory ligament was divided and ligated with harmonic scalpel and then attention drawn to the middle thyroid vein. The middle thyroid vein was identified and isolated next to the gland capsule and ligated and divided with harmonic scalpel and then attention drawn superiorly. The superior vascular pedicle was identified and isolated next of the gland capsule and then ligated and divided again with harmonic scalpel. The multiple inferior pole vascular perforators were identified ligated and divided with harmonic scalpel and then dissection performed around the right thyroid lobe it from the tracheoesophageal groove and surrounding soft tissues. The recurrent laryngeal nerve was identified in its usual location. Dissection was performed dissecting the thyroid lobe from the lateral surface of the nerve while preserving the integrity of the nerve. The superior and inferior parathyroid glands were identified and preserved. The posterior suspensory ligament was then divided and then the specimen sent for permanent section analysis. Hemostasis was established with bipolar cautery. The wound was irrigated with normal saline. Hemostasis was seen to be adequate. The wound was then closed in layers with 4-0 Vicryl to reapproximate the strap muscles and 4-0 Monocryl to reapproximate the platysma and subcutaneous layer and 5-0 nylon was used to reapproximate the skin edges. A sterile dressing was then placed and the procedure concluded. All counts correct blood loss minimal and patient was sent to recovery in stable condition Condition: stable Disposition: PACU Complications:: No complications
[2023-04-30 14:39] LABS: POC Glucose,Bedside 109 (70-110)
--- NOTE | 2023-04-30 14:43 | EXP.ANES.I ---
[facility] Anesthesia Record Part I Anesthesia Record I Intake, IV Amount: 800 Hydration: Adequate Estimated blood loss (mL): 25 Urine output (mL): 0 Blood Products used (#): none Blood Pressure: 157/75 SaO2: 94 Pulse Rate: 88 Airway Patency: Patent (+Phonation; Talking. ) Respiratory Rate: 16 Temperature: 97.0 F Patient is:: Awake, Nasal O2 and Stable Stable to PACU at:: 14:30
--- NOTE | 2023-05-02 04:37 | P.PNANES_ITS ---
[facility] Anesthesia Record Part II Anesthesia Record Part II Discharge Time: 15:13 Destination: Surgical Day Care (OP Surgery) PACU nurse assessment reviewed?: Yes Patient Condition:: Good Anesthesia Complications:: None Swallowing reflex intact?: Yes Airway Patency: Patent Cyanosis?: No Blood Pressure: 152/88 SaO2: 94 Respiratory Rate: 16 Pulse Rate: 76 Temperature: 97.4 F Mental Status: Alert & Oriented Pain level:: 4 Nausea and/or vomitting:: None Intake, IV Amount: 0 Hydration: Adequate
[2023-05-02 04:41] VITALS: BP 152/88; PULSE 76; RESP 16; TEMP 36.3; O2SAT 94
== END 2023-04-30 15:45 | disposition home or self-care (01) ==
PROVIDERS: PCP Internal Medicine Adolescent Medicine; Visit Provider Otolaryngology
PROC: (CPT 60220; principal; 2023-04-30 09:45)
DX: E04.2 Nontoxic multinodular goiter (principal); E11.9 Type 2 diabetes mellitus without complications
CPT/HCPCS: 60220; 82962; 93005; 96374; J2405

== ENCOUNTER → 2023-05-08 09:14 | Outpatient (POV) | payer MEDICARE, SELFPAY ==
--- NOTE | 2023-05-08 09:38 | EXP.PAIN.SOA ---
[facility] Pain Management SOAP Note Subjective:: Patient is a pleasant 72-year-old male who presents today for follow-up of lumbar epidural steroid injection L4-L5 on 04/25/2023. We are currently treating the patient for degenerative disc disease of lumbar spine with lumbar radiculopathy symptoms, low back pain, sacroiliitis, right knee pain. Today he states his pain is a 2 out of 10. Patient states he has had upwards of 90% improvement following this injection and that it has helped his low back and leg symptoms. He does state he has been able to increase his activity with decreased pain however he is still experiencing some pain around his right hip and groin. Patient does describe this is an aching, throbbing sensation that is worse with increased activity or prolonged positioning such as sitting. Patient states he often has to angle his position in a chair due to the increased pain when pressure is applied to the right side of his hip and buttocks. Patient does state the pain is interfering with his ability perform activities of daily living such as cooking and cleaning. Patient is currently managed with Percocet 5 mg 3 times a day and alprazolam from an outside provider. He denies any side effects from this medication. His Preston has been reviewed and is appropriate. Review of Systems: General: No recent weight changes, no fever, no sleep disturbances Respiratory: No cough, no shortness of air, no recurring pulmonary infections Cardiovascular/peripheral vascular: No chest pain, no palpitations, no edema, no shortness of breath Gastrointestinal: No new onset incontinence, normal bowel movements reported Genitourinary: No new onset incontinence Musculoskeletal: Right hip/buttocks pain Psychiatric: [Normal mood/affect] Neurological: [Denies weakness in extremities], [denies balance issues] Objective:: Physical Exam: General: Alert and oriented x3, no acute distress, pleasant and cooperative Lungs: Respirations even and unlabored, symmetrical chest expansion Eyes: PERRL Musculoskeletal: Flexion and extension of lumbar [spine] somewhat guarded secondary to pain, [antalgic gait noted] point tenderness along right SI with a positive right Bonnie's, May's, Gaenslen's, compression and distraction exam Neurological: Speech clear, no gross sensory deficit Assessment:: Degenerative disc disease of lumbar spine with lumbar radiculopathy symptoms, low back pain, sacroiliitis, right knee pain Plan:: Patient is experiencing worsening pain in his right hip and buttocks with limited range of motion of his lumbar spine. Patient did have point tenderness along his right SI with a positive right Bonnie's, May's, Gaenslen's, compression and distraction exam. I discussed with the patient that he may benefit from a right SI injection. Risk and benefits of this injection were explained to the patient and he would like to proceed forward with this plan of care. Patient will be scheduled for a right SI injection. Patient has been instructed to contact the clinic with any concerns before the next appointment. Dr. Gonzalez has reviewed this note and agrees with this plan of care. This note was dictated using voice recognition software and make contain errors or omissions. [facility] Disclaimer: The information contained in this section may have been updated after the patient was seen, as this information can be updated by other users. 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
[2023-05-08 10:11] VITALS: BP 146/88; PULSE 70; RESP 18; O2SAT 97; BMI 31.2
== END ==
PROVIDERS: PCP Internal Medicine Adolescent Medicine; Visit Provider Nurse Practitioner Family
DX: M51.16 Intervertebral disc disorders with radiculopathy, lumbar region (principal); M54.50 Low back pain, unspecified; M46.1 Sacroiliitis, not elsewhere classified; M25.561 Pain in right knee
CPT/HCPCS: 99212; G0463

== ENCOUNTER 2023-05-23 11:52 | Day surgery (SDC) | payer MEDICARE, SELFPAY ==
[2023-05-23 12:00] VITALS: BP 111/45; PULSE 47; RESP 16; O2SAT 96; BMI 31.2
[2023-05-23 12:07] VITALS: BP 103/46; PULSE 51; O2SAT 99
[2023-05-23 12:09] VITALS: BP 103/46; PULSE 57; O2SAT 95
--- NOTE | 2023-05-23 12:13 | EXP.PAIN.PRO ---
Procedure Date: 05/23/23 Time: 12:05 Anesthesiologist:: Hitesh Babb CRNA Complications:: None Pre-procedure Diagnosis:: Right sacroiliitis Post-procedure Diagnosis:: Same. Indications for Procedure:: Patient is a pleasant 72-year-old male who returns our clinic today for right sacroiliac joint injection. Patient reports he has had significant improvement terms of his overall right posterior hip pain with previous right sacroiliac joint injections. He rates his pain 7/10. Patient has extreme point tenderness over the right sacroiliac joint. We Procedure Details:: definitely procedure: Right sacroliliac joint injection under fluoroscopy Informed consent was obtained and the risk and benefits of the procedure were explained to the patient.~ The patient was taken to the procedure room and noninvasive monitors were placed including noninvasive blood pressure cuff and pulse oximeter.~ The patient was placed prone on the procedure table.~ The~ right hip was cleansed using Betadine as a cleansing solution.~ C-arm fluorosocpy was used to view the right SI joint.~ The skin and subcutaneous tissues were anesthetized using Lidocaine 1.5% and a 25-gauge needle.~ After this, a 22-gauge spinal needle was inserted under fluoroscopic guidance into the inferior aspect of the right SI joint.~ Omnipaque dye was injected and a good spread was seen throughout the joint.~ After this, approximately 5 mL of bupivacaine 0.25% and Depo-Medrol 40 mg was incrementally injected into the sacroiliac joint.~ The patient tolerated the procedure well with no complications.~ The patient was observed in the Pain Clinic, then discharged home neurologically intact.~ Plan and Disposition:: Patient was discharged without incident.
[2023-05-23 12:15] VITALS: BP 126/56; PULSE 47; RESP 16; O2SAT 96
== END 2023-05-23 12:15 | disposition home or self-care (01) ==
PROVIDERS: PCP Internal Medicine Adolescent Medicine; Visit Provider Nurse Anesthetist, Certified Registered
DX: M46.1 Sacroiliitis, not elsewhere classified (principal)
CPT/HCPCS: 27096; G0260; J1040

== ENCOUNTER → 2023-06-10 14:01 | Outpatient (POV) | payer MEDICARE, SELFPAY ==
[2023-06-10 14:14] VITALS: BP 138/76; PULSE 60; RESP 18; O2SAT 99; BMI 31.2
--- NOTE | 2023-06-10 14:20 | A.OFFVIS_ITS ---
[facility] Pain Management SOAP Note Subjective:: This patient is a very pleasant 72-year-old male that returns our clinic today for follow-up visit after receiving right sacroiliac joint injection. He is reporting 75% improvement terms of his overall right posterior hip pain. Patient also had lumbar epidural steroid injection at the L4-5 level on 04/25/2023. Patient reports between the 2 injections he is doing very well. Very pleased with the results. I instructed the patient he could have either 1 of these 2 or 3 times a year if needed. The patient's [place] #[id number] has been reviewed and appropriate. Patient rates his pain today 07/19. Objective:: Patient is awake alert [place] x 3. No acute distress. Flexion-extension lumbar spine somewhat guarded secondary to pain. Deep tendon reflexes upper lower extremities normal. Motor strength upper and lower extremities normal. There is no gross sensory deficit. Gait is normal. Assessment:: Degenerative disc lumbar spine multilevels. Lumbar radiculopathy. Lumbar spondylosis. Multilevel lumbar disc bulge. Lumbar spinal stenosis. Right sacroiliitis. Plan:: Patient will return to see us as needed. [facility] Disclaimer: The information contained in this section may have been updated after the patient was seen, as this information can be updated by other users. 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
== END ==
LOC: SC.PAIN 14:03
PROVIDERS: PCP Internal Medicine Adolescent Medicine; Visit Provider Nurse Anesthetist, Certified Registered
DX: M51.16 Intervertebral disc disorders with radiculopathy, lumbar region (principal); M47.26 Other spondylosis with radiculopathy, lumbar region; M51.26 Other intervertebral disc displacement, lumbar region; M48.061 Spinal stenosis, lumbar region without neurogenic claudication; M46.1 Sacroiliitis, not elsewhere classified
CPT/HCPCS: 99212; G0463

== ENCOUNTER 2023-06-30 09:10 | Outpatient (CLI) | payer MEDICARE, SELFPAY ==
[2023-06-30 11:18] LABS: Free T4 (Free Thyroxine) 0.84 ng/dl (0.78-2.19)
[2023-06-30 11:38] LABS: Thyroid Stimulating Hormone 4.14 uIU/mL (0.465-4.68)
== END 2023-06-30 23:59 ==
LOC: LAB 09:11
PROVIDERS: PCP Internal Medicine Adolescent Medicine; Visit Provider Otolaryngology
DX: Z86.39 Personal history of other endocrine, nutritional and metabolic disease (principal)
CPT/HCPCS: 36415; 84439; 84443

== ENCOUNTER 2023-07-24 08:59 | Outpatient (CLI) | payer MEDICARE, SELFPAY ==
--- NOTE | 2023-07-24 09:05 | MR_ITS ---
FINAL REPORT CLINICAL HISTORY: PAIN IN LEFT SHOULDER. NKI. COMPARISON: None FINDINGS: Multiplanar MR imaging of the left shoulder was performed without contrast. There is a focal full-thickness tear of the posterior footprint of the supraspinatus tendon measuring 6 mm in the AP dimension. There is infraspinatus tendinosis present, with intrasubstance tears involving less than 50% of the thickness of the tendon. There is moderate acromioclavicular degenerative change. A small amount of fluid is present in the subacromial/subdeltoid bursa. The glenoid labrum is intact. There is abnormal appearance of the long head of the biceps tendon consistent with a high-grade partial tear. A small glenohumeral joint effusion is seen. There is thickening of the joint capsule in the axillary recess, consistent with adhesive capsulitis. Multiple small subchondral cysts are present in the humeral head. There is no evidence of fracture or dislocation. The musculature is intact. There is no evidence of soft tissue mass. IMPRESSION: Focal full-thickness tear posterior footprint of the supraspinatus tendon as described. Infraspinatus tendinosis with an intrasubstance tear involving less than 50% of the thickness of that tendon. Abnormal appearance of the LHBT consistent with a high-grade partial tear. Changes consistent with adhesive capsulitis. Reviewed, Interpreted and Dictated by Dean Buck III, MD Transcribed by Patricia Guadalupe Authenticated and [facility]
== END 2023-07-24 23:59 ==
PROVIDERS: PCP Internal Medicine Adolescent Medicine; Visit Provider Orthopaedic Surgery Adult Reconstructive Orthopaedic Surgery
DX: M25.512 Pain in left shoulder (principal)
CPT/HCPCS: 73221

== ENCOUNTER 2023-12-03 10:35 | Outpatient (CLI) | payer MEDICARE, SELFPAY ==
--- NOTE | 2023-12-03 10:42 | XR_ITS ---
FINAL REPORT CLINICAL HISTORY: RT ARM AND ELBOW PAIN fall COMPARISON: None FINDINGS: Two views of the right humerus show no evidence of an acute, displaced fracture or dislocation of the visualized bony architecture. The joint spaces appear normal. IMPRESSION: Unremarkable exam. Reviewed, Interpreted and Dictated by Lei Luz MD Transcribed by Jane Stoll Authenticated and [facility]
--- NOTE | 2023-12-03 10:42 | XR_ITS ---
FINAL REPORT CLINICAL HISTORY: RT ARM AND ELBOW PAIN fall COMPARISON: None FINDINGS: 2 views of the right forearm were obtained. There is no acute fracture or dislocation. The joints are intact. There are no soft tissue abnormalities. IMPRESSION: No acute process. Reviewed, Interpreted and Dictated by Lei Luz MD Transcribed by Jane Stoll Authenticated and [facility]
--- NOTE | 2023-12-03 10:42 | XR_ITS ---
FINAL REPORT CLINICAL HISTORY: fall , RUE pain COMPARISON: None FINDINGS: RIGHT ELBOW 3 views were obtained. There is no acute fracture or dislocation. There is a cortical calcification along the lateral epicondyle likely due to chronic tendinitis. There is no joint effusion. The joint spaces are intact. There is no soft tissue abnormality. IMPRESSION: No acute bony abnormality. Reviewed, Interpreted and Dictated by Lei Luz MD Transcribed by Jane Stoll Authenticated and . [facility]
== END 2023-12-03 23:59 | disposition home or self-care (01) ==
LOC: RAD 10:36
PROVIDERS: PCP Internal Medicine Adolescent Medicine; Visit Provider Internal Medicine Adolescent Medicine
DX: M79.601 Pain in right arm (principal); M25.521 Pain in right elbow
CPT/HCPCS: 73060; 73080; 73090

== ENCOUNTER 2024-02-17 10:19 | Outpatient (POV) | payer MEDICARE, SELFPAY | END 2024-02-17 23:59 | disposition home or self-care (01) | LOC: SC 10:19 | PROVIDERS: PCP Internal Medicine Adolescent Medicine; Visit Provider Dermatology | DX: Z00.00 Encounter for general adult medical examination without abnormal findings (principal) ==

== ENCOUNTER 2024-05-13 09:58 | Outpatient (CLI) | payer MEDICARE, SELFPAY ==
--- NOTE | 2024-05-13 09:58 | US_ITS ---
FINAL REPORT CLINICAL HISTORY: 1 year F/U US FINDINGS: Sonographic images of the thyroid gland were obtained. The right thyroid lobe is surgically absent. The left thyroid lobe measures 40 mm. in length. The thyroid isthmus measures 3 mm. The echogenicity is normal. There is a 4 mm solid, hypoechoic nodule in the left thyroid lobe consistent with TR 4. 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 No specific follow-up recommended. Reviewed, Interpreted and Dictated by Dean Buck III, MD Transcribed by Mitali Gerard Authenticated and [facility]
== END 2024-05-13 23:59 | disposition home or self-care (01) ==
LOC: RAD 09:58
PROVIDERS: PCP Internal Medicine Adolescent Medicine; Visit Provider Otolaryngology
DX: E04.1 Nontoxic single thyroid nodule (principal)
CPT/HCPCS: 76536

== ENCOUNTER 2024-06-07 10:00 | Outpatient (RCR) | payer MEDICARE, SELFPAY | END 2024-06-07 23:59 | disposition home or self-care (01) | LOC: OT 10:00 | PROVIDERS: PCP Internal Medicine Adolescent Medicine; Visit Provider Orthopaedic Surgery Adult Reconstructive Orthopaedic Surgery | DX: M25.512 Pain in left shoulder (principal); Z98.890 Other specified postprocedural states | CPT/HCPCS: 97014; 97035; 97110; 97140; 97165; 97168; 97530; G0283 ==

== ENCOUNTER 2024-07-05 10:00 | Outpatient (RCR) | payer MEDICARE, SELFPAY | END 2024-07-05 23:59 | disposition home or self-care (01) | LOC: OT 10:00 | PROVIDERS: PCP Internal Medicine Adolescent Medicine; Visit Provider Orthopaedic Surgery Adult Reconstructive Orthopaedic Surgery | DX: Z98.890 Other specified postprocedural states (principal); M25.512 Pain in left shoulder | CPT/HCPCS: 97014; 97110; 97140; G0283 ==